=== PATIENT | male | born 1970 | race Caucasian/White ===

== ENCOUNTER 2020-04-23 16:06 | Outpatient (CLI) | payer OTHER, SELFPAY ==
--- NOTE | 2020-04-23 16:15 | CT_ITS ---
WS: [id number] CTA OF THE CHEST WITH PULMONARY EMBOLISM PROTOCOL TECHNIQUE: High-resolution contrast enhanced CTA of the chest with coronal and sagittal reformatted i mages with pulmonary embolism protocol. MIP images are also reviewed. CLINICAL INFORMATION: DYSPNEA, CHEST PAIN GOING THROUGH TO BACK COMPARISON: 010 . DLP: 781.[address] scans at [facility] use at least one of these dose optimization techniques: automat ed exposure control; mA and/or kV adjustment per patient size (includes targeted exams where dose is matched to clinical indication); or iterative reconstruction. FINDINGS: Proximal main pulmonary arteries are normal. Segmental and subsegmental pulmonary arteries are normal . No evidence for pulmonary embolus. Normal caliber thoracic aorta. No mediastinal or hilar lymphaden opathy. Normal endobronchial tree. Small esophageal hiatal hernia. Mild chronic emphysematous changes. Slight bibasilar atelectasis. No acute pulmonary infiltrates. Diffuse fatty infiltration of the liver. Cholecystectomy clips. Adrenal glands are normal. Partially visualized upper pole left renal cyst measuring [address]/CT angio chest PE protcl [id number] IMPRESSION: 1. No evidence of pulmonary embolus. 2. No mediastinal or hilar lymphadenopathy. 3. Normal caliber thoracic aorta. No evidence of dissection. 4. Diffuse fatty infiltration of the liver with cholecystectomy. 5. Small esophageal hiatal hernia. 6. Mild chronic emphysematous changes. No acute pulmonary infiltrates. Slight atelectasis in the lung bases.
[2020-04-23] MEDS: iohexol 350 mg/mL 100 mL Btl IV (16:29)
== END 2020-04-23 16:07 | disposition home or self-care (01) ==
LOC: RADWPI 16:10
PROVIDERS: Family Provider Family Medicine; PCP Family Medicine; Visit Provider Family Medicine
DX: R06.00 Dyspnea, unspecified (principal); R07.9 Chest pain, unspecified; K76.0 Fatty (change of) liver, not elsewhere classified; K44.9 Diaphragmatic hernia without obstruction or gangrene
CPT/HCPCS: 71275; Q9967

== ENCOUNTER → 2020-07-22 09:54 | Outpatient (BNVA) | payer OTHER, SELFPAY | PROVIDERS: Family Provider Family Medicine; PCP Family Medicine; Visit Provider Nurse Practitioner Family | DX: Z20.828 Contact with and (suspected) exposure to other viral communicable diseases (principal); J06.9 Acute upper respiratory infection, unspecified | CPT/HCPCS: 87635 ==

== ENCOUNTER → 2022-03-23 12:50 | Outpatient (BNVA) | payer BC, SELFPAY | PROVIDERS: PCP Family Medicine; Visit Provider Family Medicine | DX: Z12.5 Encounter for screening for malignant neoplasm of prostate (principal); Z00.00 Encounter for general adult medical examination without abnormal findings; R73.03 Prediabetes; Z51.81 Encounter for therapeutic drug level monitoring | CPT/HCPCS: 80053; 83036; 84153; 85025 ==

== ENCOUNTER → 2022-05-04 14:00 | Outpatient (BNVA) | payer BC, SELFPAY | PROVIDERS: PCP Family Medicine; Visit Provider Family Medicine | DX: R30.0 Dysuria (principal) | CPT/HCPCS: 81000; 87086 ==

== ENCOUNTER 2022-05-07 09:39 | Outpatient (CLI) | payer BC, SELFPAY ==
--- NOTE | 2022-05-07 | US_ITS ---
WS: [id number] RENAL ULTRASOUND HISTORY: TENDERNESS COMPARISON: None available. TECHNIQUE: 2-D and color Doppler imaging of the kidney submitted. Right kidney: 12.0 cm x 5.3 cm x 5.0 cm. Normal echogenicity with no hydronephrosis or mass. Left kidney: 11.8 cm x 5.7 cm x 4.5 cm. Normal echogenicity with no hydronephrosis or mass. Aorta: Normal. Urinary Bladder: Minimally distended. No abnormality. US/US renal BI* [id number] IMPRESSION: Normal renal ultrasound.
== END 2022-05-07 09:40 | disposition home or self-care (01) ==
LOC: RAD 09:40
PROVIDERS: PCP Family Medicine; Visit Provider Family Medicine
DX: R10.819 Abdominal tenderness, unspecified site (principal)
CPT/HCPCS: 76770

== ENCOUNTER 2022-05-30 05:48 | Emergency (ER) | payer BC, SELFPAY ==
[2022-05-30 05:55] VITALS: BP 144/87; PULSE 71; RESP 18; TEMP 36.6; O2SAT 98; BMI 38.0
--- NOTE | 2022-05-30 06:07 | CTR_ITS ---
PROCEDURE INFORMATION: Exam: CT Abdomen And Pelvis Without Contrast Exam date and time: 05/30/2022 7:25 AM Age: 51 years old Clinical indication: Abdominal pain; Flank; Right; Prior surgery; Surgery type: Gb, appy; Additional info: Right flank pain TECHNIQUE: Imaging protocol: Computed tomography of the abdomen and pelvis without contrast. Total images: 347 Radiation optimization: All CT scans at this facility use at least one of these dose optimization techniques: automated exposure control; mA and/or kV adjustment per patient size (includes targeted exams where dose is matched to clinical indication); or iterative reconstruction. COMPARISON: CT abdomen wo con [id number] 09/06/2017 1:53 PM RADIATION DOSE METRICS: Total DLP (mGy-cm): 1041.83 FINDINGS: Liver: Hepatic steatosis is evident with areas of focal fatty sparing. Gallbladder and bile ducts: Prior cholecystectomy noted. Pancreas: Normal. No ductal dilation. Spleen: Normal. No splenomegaly. Adrenal glands: Normal. No mass. Kidneys and ureters: Nonobstructive right sided kidney stone measures 2 mm. 4 mm right-sided ureterovesicular junction stone. Mild hydroureteronephrosis. Stomach and bowel: Unremarkable. No obstruction. No mucosal thickening. Appendix: Prior appendectomy noted. Intraperitoneal space: Unremarkable. No free air. No significant fluid collection. Vasculature: Mild atherosclerotic disease is evident. Incidental venous phlebolith noted. Lymph nodes: Unremarkable. No enlarged lymph nodes. Urinary bladder: Unremarkable as visualized. Reproductive: The prostate gland contains benign-appearing calcifications that are likely parenchymal. Bones/joints: L4-S1 Facet joint degenerative changes are present. Soft tissues: Unremarkable. CT/CT kidney stone [id number] IMPRESSION: 4 mm right-sided ureterovesicular junction stone. Mild hydroureteronephrosis.
--- NOTE | 2022-05-30 06:08 | ED_ITS ---
HPI - Male Genitourinary General: Chief complaint: Urogenital-Male Stated complaint: right abdomen pain Time Seen by Provider: 05/30/22 06:04 History of Present Illness: 51-year-old male presents with right flank pain. Patient reports he had an episode couple weeks ago which lasted 3 to 4 days. He was seen had an ultrasound sounds like of his gallbladder that was negative. Reports that the pain woke him up around 4 AM this morning in the right flank radiates little bit down to the lower abdomen. That he is nauseated but has not vomited. Denies any diarrhea. No fevers or chills. No cough. Associated symptoms: Reports nausea; Deny dysuria or vomiting Review of Systems Const: Denies: fever(s) or chills Card: Denies: chest pain or palpitations Resp: Denies: dyspnea or productive cough GI: Reports: abdominal pain and nausea; Denies: vomiting or diarrhea : Reports: flank pain; Denies: dysuria or urinary frequency Musc: Reports: back pain; Denies: neck pain or joint pain Skin/Breast: Denies: rash or pruritus Neuro: Denies: headache(s) or dizziness Physical Exam Const: COMMON NORMALS: no acute distress, average body habitus, patient oriented x3, no limitations and alert HENMT: COMMON NORMALS: hearing grossly normal bilaterally and moist oral mucous membranes Resp: COMMON NORMALS: normal respiratory effort, No retractions and No use of accessory muscles Cardio: COMMON NORMALS: regular rate and regular rhythm RATE: regular rate RHYTHM: regular rhythm GI: COMMON NORMALS: Soft to palpation PALPATION: Yes Soft to palpation and Yes Tenderness to palpation present (GI) Details: RLQ and RUQ : BLADDER/KIDNEY EXAM: Yes CVA tenderness on the right Back/Pelvis: GENERAL BACK: Yes CVA tenderness Extremity: COMMON NORMALS: normal to inspection, full ROM and capillary refill normal Neuro: COMMON NORMALS: patient oriented x3, moves all extremities, no focal motor deficits and no sensory deficits noted SENSORIUM/ORIENTATION: Yes alert Psych: COMMON NORMALS: mental status grossly normal, cooperative and normal affect Skin: COMMON NORMALS: no rashes or lesions noted and turgor normal GENERAL SKIN EXAM: no rashes or lesions noted and turgor normal Course Vital Signs: Vital signs: Vital Signs Temperature 97.9 F 11/06/22 05:55 Pulse Rate 62 05/30/22 08:43 Respiratory Rate 16 05/30/22 08:43 Blood Pressure 133/88 05/30/22 08:43 Pulse Oximetry 99 05/30/22 08:43 Oxygen Delivery Me thod 05/30/22 05:55 MDM - Male Medical Decision Making Patient's CT shows a 4 mm right-sided stone with some mild hydronephrosis. Patient with what appears to be early urinary tract infection. Patient to be treated with pain medic sent, nausea medication and antibiotic. Recommend a strain in his urine. He should follow-up with his primary care provider in 1 week for recheck. Patient stable discharged Lab Data : 05/30/22 06:20 05/30/22 06:20 Radiology Impressions Abdomen/Pelvis CT 05/30/22 06:07 IMPRESSION: 4 mm right-sided ureterovesicular junction stone. Mild hydroureteronephrosis. Laboratory Results WBC 9.0 10^3/uL (4.0-10.0) 05/30/22 06:20 RBC 5.10 10^6/uL (4.1-5.3) 05/30/22 06:20 Hgb 14.9 g/dL (11.7-16.6) 05/30/22 06:20 Hct 46.7 % (42.0-52.0) 05/30/22 06:20 MCV 91.6 fl (80-94) 05/30/22 06:20 MCH 29.2 pg (28.0-34.0) 05/30/22 06:20 MCHC 31.9 g/dL (30.0-36.0) 05/30/22 06:20 RDW 12.9 % (12.1-15.1) 05/30/22 06:20 Plt Count 288 10^3/cmm (130-400) 05/30/22 06:20 MPV 10.4 fL (7.4-10.4) 05/30/22 06:20 Neut % (Auto) 55.5 % 05/30/22 06:20 Lymph % (Auto) 24.6 % 05/30/22 06:20 [place] % (Auto) 10.8 % 05/30/22 06:20 Eos % (Auto) 7.7 % 05/30/22 06:20 Baso % (Auto) 1.0 % 05/30/22 06:20 Neut # (Auto) 4.97 10^3/uL (1.8-7.7) 05/30/22 06:20 Lymph # (Auto) 2.2 10^3/uL (0.8-4.8) 05/30/22 06:20 [place] # (Auto) 1.0 10^3/uL (0.2-0.9) H 05/30/22 06:20 Eos # (Auto) 0.7 10^3/uL (0.0-0.8) 05/30/22 06:20 Baso # (Auto) 0.1 10^3/uL (0.0-0.1) 05/30/22 06:20 Nucleated RBC % (auto) 0 % 05/30/22 06:20 Nucleated RBCs # 0.0 /100WBC 05/30/22 06:20 Sodium 138 mmol/L (136-145) 05/30/22 06:20 Potassium 4.1 mmol/L (3.5-5.1) 05/30/22 06:20 Chloride 101 mmol/L (98-107) 05/30/22 06:20 Carbon Dioxide 28 mmol/L (22-29) 05/30/22 06:20 Anion Gap 13.1 (5-19) 05/30/22 06:20 BUN 16 mg/dL (6-20) 05/30/22 06:20 Creatinine 1.0 mg/dL (0.7-1.2) 05/30/22 06:20 GFR Calculation 78.5 mL/min (90-130) L 05/30/22 06:20 Glucose 108 mg/dL (65-115) 05/30/22 06:20 Calculated Osmolality 288 mOsm/kg (285-295) 05/30/22 06:20 Calcium 8.9 mg/dL (8.5-10.5) 05/30/22 06:20 Total Bilirubin 0.3 mg/dL (0.15-1.2) 05/30/22 06:20 AST 24 U/L (0-40) 05/30/22 06:20 ALT 39 U/L (0-41) 05/30/22 06:20 Alkaline Phosphatase 75 U/L (40-130) 05/30/22 06:20 Total Protein 7.6 g/dL (6.6-8.7) 05/30/22 06:20 Albumin 4.4 g/dL (3.5-5.2) 05/30/22 06:20 Globulin 3.2 g/dL (1.3-4.6) 05/30/22 06:20 Urine Color Dark yellow (Yellow) 05/30/22 06:03 Urine Appearance Clear (CLEAR) 05/30/22 06:03 Urine pH 5 (5-7) 05/30/22 06:03 Ur Specific [place] 1.025 (1.005-1.030) 05/30/22 06:03 Urine Protein 1+ (Negative) H 05/30/22 06:03 Urine Glucose (UA) Norm (Normal) 05/30/22 06:03 Urine Ketones 1+ (Negative) H 05/30/22 06:03 Urine Blood 3+ (Negative) H 05/30/22 06:03 Urine Nitrate Negative (Negative) 05/30/22 06:03 Urine Bilirubin 1+ (Negative) H 05/30/22 06:03 Urine Urobilinogen 1 mg/dL (Negative) H 05/30/22 06:03 Ur Leukocyte Esterase Trace (Negative) H 05/30/22 06:03 Urine RBC 15-25 /hpf (0-2) H 05/30/22 06:03 Urine WBC Rare /hpf (0-5) 05/30/22 06:03 Ur Squamous Epith Cells None /hpf (0-5) 05/30/22 06:03 Amorphous Sediment Not Reportable 05/30/22 06:03 Urine Bacteria 1+ /hpf (NONE) H 05/30/22 06:03 Discharge Plan Discharge Patient Disposition: Home Clinical Impression: Right ureteral calculus Condition: Stable Prescriptions: New hydrocodone-acetaminophen 5-325 mg tablet 1 tab PO Q8H PRN (Reason: pain) Qty: 10 0RF Bactrim DS 800-160 mg tablet 1 tab PO DAILY 5 Days Qty: 10 0RF ondansetron 4 mg tablet,disintegrating 4 mg PO Q6H PRN (Reason: nausea and vomiting) Qty: 20 0RF No Action citalopram 20 mg tablet 20 mg PO DAILY Qty: 90 3RF Discharge Orders: Discharge ED (Routine); Ordered 05/30/22 Ordered By: Mark Wills Referrals: Monico Diehl MD [Primary Care Provider] - Discharge Diet: Usual diet Discharge Activity: Resume usual activity Patient Instructions: Kidney Stones (ED), How to Strain Your Urine (ED), Opioid Safety, Pain Management Activity Restrictions/Additional Instructions: Follow-up with your primary care provider in 4 to 5 days for recheck of your symptoms sooner if they continue to worsen Coding Level of Care Code ED Nanotechnician for Chg Fwd Exam Comprehensive
[2022-05-30] MEDS: sodium chloride 0.9% 1,000 ML 999 ML IV (06:28)
[2022-05-30] MEDS: ketorolac 30 mg/mL INJ IVP (06:28)
[2022-05-30 06:29] LABS: Basophils # 0.1 10^3/uL (0.0-0.1); Eosinophils # 0.7 10^3/uL (0.0-0.8); Eosinophils % 7.7 %; Hematocrit 46.7 % (42.0-52.0); Hemoglobin 14.9 g/dL (11.7-16.6); Lymphocytes # 2.2 10^3/uL (0.8-4.8); Lymphocytes % 24.6 %; Mean Corpuscular HGB Conc 31.9 g/dL (30.0-36.0); Mean Corpuscular Hemoglobin 29.2 pg (28.0-34.0); Mean Corpuscular Volume 91.6 fl (80-94); Mean Platelet Volume 10.4 fL (7.4-10.4); Monocytes % 10.8 %; Neutrophils # 4.97 10^3/uL (1.8-7.7); Neutrophils % 55.5 %; Nucleated Red Blood Cells % 0 %; Platelet Count 288 10^3/cmm (130-400); Red Cell Distribution Width 12.9 % (12.1-15.1)
[2022-05-30 06:50] LABS: Alanine Aminotransferase 39 U/L (0-41); Albumin Level 4.4 g/dL (3.5-5.2); Alkaline Phosphatase 75 U/L (40-130); Anion Gap 13.1 (5-19); Aspartate Amino Transferase 24 U/L (0-40); Blood Urea Nitrogen 16 mg/dL (6-20); Calcium 8.9 mg/dL (8.5-10.5); Carbon Dioxide 28 mmol/L (22-29); Chloride 101 mmol/L (98-107); Globulin 3.2 g/dL (1.3-4.6); Glomerular Filtration Rate 78.5 mL/min (90-130); Glucose 108 mg/dL (65-115); Osmolality Calculated 288 mOsm/kg (285-295); Potassium 4.1 mmol/L (3.5-5.1); Sodium 138 mmol/L (136-145); Total Bilirubin 0.3 mg/dL (0.15-1.2); Total Protein 7.6 g/dL (6.6-8.7)
[2022-05-30] MEDS: orphenadrine 30 mg/mL Inj 2 mL 60 MG IVP (07:03)
[2022-05-30 07:41] LABS: Protein Urine 1+ (Negative); Specific Gravity, Urine 1.025 (1.005-1.030); Urine Appearance Clear (CLEAR); Urine Color Dark Yellow (Yellow); pH Urine 5 (5-7)
[2022-05-30 07:42] LABS: Bilirubin Urine 1+ (Negative); Blood Urine 3+ (Negative); Glucose Urine UA Norm (Normal); Ketones Urine 1+ (Negative); Nitrate Urine Negative (Negative); Urobilinogen Urine 1 mg/dL (Negative)
[2022-05-30 07:43] LABS: Add Urine Culture? Yes; Add Urine Microscopic? YES; Bacteria Urine 1+ /hpf; Leukocyte Esterase Urine Trace (Negative); RBC Urine 15-25 /hpf (0-2); WBC Urine RARE /hpf (0-5)
[2022-05-30 08:43] VITALS: BP 133/88; PULSE 62; RESP 16; O2SAT 99
== END 2022-05-30 08:44 | disposition home or self-care (01) ==
PROVIDERS: Emergency Provider Student in an Organized Health Care Education/Training Program; PCP Family Medicine
DX: N13.2 Hydronephrosis with renal and ureteral calculous obstruction (principal)
CPT/HCPCS: 74176; 80053; 81001; 85025; 87086; 96361; 96374; 96375; 99285; J1885; J2360; J7030

== ENCOUNTER 2023-08-26 15:45 | Emergency (ER) | payer BC, SELFPAY ==
[2023-08-26 15:52] VITALS: BP 124/81; PULSE 81; RESP 16; TEMP 36.7; O2SAT 96
--- NOTE | 2023-08-26 16:18 | CTR_ITS ---
PROCEDURE INFORMATION: Exam: CT Abdomen And Pelvis With Contrast Exam date and time: 08/26/2023 4:52 PM Age: 53 years old Clinical indication: Pain; Generalized; Additional info: Abdominal pain TECHNIQUE: Imaging protocol: Computed tomography of the abdomen and pelvis with contrast. Contrast material: OMNI 350; Contrast volume: 100 ml; Contrast route: INTRAVENOUS (IV); COMPARISON: CT kidney stone [id number] 05/30/2022 7:25 AM RADIATION DOSE METRICS: Total DLP (mGy-cm): 1009.1 FINDINGS: Lungs: Lung bases are clear. No pleural effusion. Liver: There is a stable 2 cm hemangioma in the left hepatic lobe. Gallbladder and bile ducts: The gallbladder has been resected. Pancreas: Normal. No ductal dilation. Spleen: Normal. No splenomegaly. Adrenal glands: Normal. No mass. Kidneys and ureters: Normal. No hydronephrosis. Stomach and bowel: There is focal inflammation involving the mid sigmoid colon and an inflamed diverticulum is noted here. I see no abscess. Appendix: No evidence of appendicitis. Intraperitoneal space: Unremarkable. No free air. No significant fluid collection. Vasculature: Unremarkable. No abdominal aortic aneurysm. Lymph nodes: Unremarkable. No enlarged lymph nodes. Urinary bladder: Unremarkable as visualized. Reproductive: Unremarkable as visualized. Bones/joints: Unremarkable. No acute fracture. Soft tissues: There is a small umbilical hernia containing mesenteric fat. CT/CT abdomen pelvis w con* [id number] IMPRESSION: 1. Acute diverticulitis of the sigmoid colon without abscess 2. Small umbilical hernia 3. Hepatic hemangioma
--- NOTE | 2023-08-26 16:19 | ED_ITS ---
HPI - Abdominal Pain 2 General: Chief Complaint: Abdominal Pain Stated Complaint: Lower abd pain Time Seen by Provider: 08/26/23 16:18 History of Present Illness: 53-year-old male presents emergency depa rtment complaints of intermittent abdominal pain for the previous 4 days. He states the pain is now worse and describes it as a 5 out of 10 and it is more so on the left than the right. He states he has not had any nausea vomiting fevers chills or night sweats. He states he does have a history of diverticulosis. He denies hematic emesis hematochezia. Review of Systems 2 General: Reports: 10 or more systems reviewed and unremarkable except in HPI and below GI: Reports: abdominal pain PFSH ED 2 PFSH: Medical History (Updated 08/26/23 @ 17:23 by Gil Saleem MD) Allergic rhinitis due to allergen Surgical History (Updated 07/22/23 @ 09:42 by Ron Vital MD) History of cholecystectomy History of appendectomy Physical Exam 2 Narrative: EXAM NARRATIVE: Constitutional: the patient appears well nourished and of normal development. Vital signs as documented. No acute distress at present. Alert and oriented-to person, place, time and situation. Head, eyes, ears, nose, mouth, throat: Normocephalic, atraumatic. Pupils-equal, round, reactive to light. No scleral icterus. Normal-appearing external ears. Normal appearing nasal turbinates, no drainage. No obvious oral lesions, posterior oropharynx without erythema or exudates. Neck: Supple, trachea is midline, no lymphadenopathy, no jugular venous distension, thyromegaly, or carotid bruits. Carotid upstrokes are brisk bilaterally. Lungs: clear to auscultation to all lung kahn. Symmetrical rise and fall of chest, no obvious signs of increased work of breathing at present. Cardiac: Regular rate and rhythm, positive S1, S2. No murmurs, rubs or gallops that I can appreciate Abdomen: Soft, tender to palpation to the left and right lower quadrant, normal active bowel sounds to all quadrants. No palpable masses, no organomegaly and abdominal bruits. Extremities: 2+ pulses in the upper extremities that are equal bilaterally, 2+ pulses in the lower extremities that are equal bilaterally. Non-edematous. Moves all extremities well, sensation to all extremities are noted. Skin: Warm, dry, intact. Course 2 Vital Signs: Vital signs: Vital Signs Temperature 98.1 F 08/26/23 15:52 Pulse Rate 86 08/26/23 18:12 Respiratory Rate 18 08/26/23 17:43 Blood Pressure 145/81 08/26/23 18:12 Pulse Oximetry 95 08/26/23 18:12 Oxygen Delivery Me thod Room Air 08/26/23 17:43 MDM - Abdominal Pain Medical Decision Making Physical exam completed and documented, I will obtain laboratory evaluation to include a CBC, CMP, lipase, urinalysis, and a CT scan of the patient's abdomen pelvis to evaluate for possible differential diagnosis of bowel obstruction, incarcerated hernia, abdominal wall strain, abdominal wall hematoma, constipation. I will provide the patient IV access and IV fluid as well as a CT scan abdomen pelvis with contrast for evaluation for possible colitis, acute appendicitis, diverticulitis. Medical Records I reviewed the patient's medical records. Lab Data I reviewed the patient's lab results. 08/26/23 16:24 08/26/23 16:24 Labs/Radiology: Radiology Impressions Abdomen/Pelvis CT 08/26/23 16:18 IMPRESSION: 1. Acute diverticulitis of the sigmoid colon without abscess 2. Small umbilical hernia 3. Hepatic hemangioma Laboratory Results WBC 9.65 10^3/uL (3.29-11.43) 08/26/23 16:24 RBC 4.85 10^6/uL (3.85-5.65) 08/26/23 16:24 Hgb 14.40 g/dL (11.27-16.99) 08/26/23 16:24 Hct 43.3 % (37-53) 08/26/23 16:24 MCV 89.3 fl (82-101) 08/26/23 16:24 MCH 29.7 pg (27-33) 08/26/23 16:24 MCHC 33.3 g/dL (30-55) 08/26/23 16:24 RDW 12.8 % (12.1-15.1) 08/26/23 16:24 Plt Count 284 10^3/cmm (157-399) 08/26/23 16:24 MPV 10.4 fL (7.4-10.4) 08/26/23 16:24 Neut % (Auto) 60.6 % 08/26/23 16:24 Lymph % (Auto) 24.6 % 08/26/23 16:24 [place] % (Auto) 11.2 % 08/26/23 16:24 Eos % (Auto) 2.4 % 08/26/23 16:24 Baso % (Auto) 0.7 % 08/26/23 16:24 Neut # (Auto) 5.85 10^3/uL (1.8-7.7) 08/26/23 16:24 Lymph # (Auto) 2.4 10^3/uL (0.8-4.8) 08/26/23 16:24 [place] # (Auto) 1.1 10^3/uL (0.2-0.9) H 08/26/23 16:24 Eos # (Auto) 0.2 10^3/uL (0.0-0.8) 08/26/23 16:24 Baso # (Auto) 0.1 10^3/uL (0.0-0.1) 08/26/23 16:24 Nucleated RBC % (auto) 0 % 08/26/23 16:24 Nucleated RBCs # 0.0 /100WBC 08/26/23 16:24 Sodium Cancelled 08/26/23 16:24 Potassium Cancelled 08/26/23 16:24 Chloride Cancelled 08/26/23 16:24 Carbon Dioxide Cancelled 08/26/23 16:24 Anion Gap Cancelled 08/26/23 16:24 BUN Cancelled 08/26/23 16:24 Creatinine Cancelled 08/26/23 16:24 GFR Calculation Cancelled 08/26/23 16:24 Glucose Cancelled 08/26/23 16:24 Calculated Osmolality Cancelled 08/26/23 16:24 Lactic Acid 1.2 mmol/L (0.5-2.2) 08/26/23 16:24 Calcium Cancelled 08/26/23 16:24 Total Bilirubin Cancelled 08/26/23 16:24 AST Cancelled 08/26/23 16:24 ALT Cancelled 08/26/23 16:24 Alkaline Phosphatase Cancelled 08/26/23 16:24 Total Protein Cancelled 08/26/23 16:24 Albumin Cancelled 08/26/23 16:24 Globulin Cancelled 08/26/23 16:24 Lipase Cancelled 08/26/23 16:24 Prolactin 12.42 ng/mL (4.0-15.2) 08/26/23 16:24 Urine Color Yellow (Yellow) 08/26/23 17:14 Urine Appearance Clear (CLEAR) 08/26/23 17:14 Urine pH 7 (5-7) 08/26/23 17:14 Ur Specific [place] 1.000 (1.005-1.030) L 08/26/23 17:14 Urine Protein Neg (Negative) 08/26/23 17:14 Urine Glucose (UA) Norm (Normal) 08/26/23 17:14 Urine Ketones Negative (Negative) 08/26/23 17:14 Urine Blood Neg (Negative) 08/26/23 17:14 Urine Nitrate Negative (Negative) 08/26/23 17:14 Urine Bilirubin Neg (Negative) 08/26/23 17:14 Urine Urobilinogen Norm mg/dL (Negative) 08/26/23 17:14 Ur Leukocyte Esterase Negative (Negative) 08/26/23 17:14 All radiology interpretation(s) finalized by discharge Discharge Plan Discharge Patient Disposition: Home Clinical Impression: Diverticulitis Abdominal pain Qualifiers: Abdominal location: lower abdomen, unspecified Qualified Code(s): R10.30 - Lower abdominal pain, unspecified Condition: Stable Prescriptions: New metronidazole 500 mg tablet 500 mg PO BID 7 Days Qty: 14 0RF levofloxacin 750 mg tablet 750 mg PO DAILY 10 Days Qty: 14 0RF hydrocodone-acetaminophen 5-325 mg tablet 1 tab PO Q8H PRN (Reason: pain) Qty: 14 0RF ondansetron HCl 4 mg tablet 4 mg PO Q12H 5 Days Qty: 10 0RF Senna-S 8.6-50 mg tablet 2 tab-cap PO BID Qty: 60 0RF No Action alprazolam 0.5 mg tablet See Rx Instructions .ROUTE .COMPLEX Rx Instructions: TAKE 1 TABLET AT THE ONSET OF SEVERE PANIC MAX 1 PER DAY AND USE INFREQUENTLY POSSIBLE amoxicillin-pot clavulanate 875-125 mg tablet 1 tab PO BID Rx Instructions: for 14 days (rx filled 08/25/23) Zyrtec 10 mg tablet 10 mg PO QAM citalopram 20 mg tablet 20 mg PO QAM Discharge Orders: Discharge ED (Routine); Ordered 08/26/23 Ordered By: Gil Saleem Referrals: Monico Diehl MD [Primary Care Provider] - Discharge Diet: Usual diet Discharge Activity: Resume usual activity Patient Instructions: Abdominal Pain (ED), Opioid Safety, Pain Management Activity Restrictions/Additional Instructions: Activity Restrictions/Additional Instructions: Thank you for choosing [facility] for your healthcare needs today. Please realize that you were seen in the Emergency Department and that we are providing you with an emergency medical screening exam and this may not be a complete and all inclusive of all the testing and or medical work-up that you may need to determine your ailment or severity of your illness. It is very important that you follow-up as instructed with your Primary care provider or Specialist for additional evaluation and to discuss your medical treatment plan. You may return to the Emergency Department should you have concerns or if your condition changes or worsens in any way. Stand Alone Forms: Work/School Release Coding Level of Care Code ED Salesperson Corsets for Salena Pal
[2023-08-26 16:30] VITALS: BP 146/81; PULSE 74; RESP 17; O2SAT 97
[2023-08-26 16:36] LABS: Basophils # 0.1 10^3/uL (0.0-0.1); Basophils % 0.7 %; Eosinophils # 0.2 10^3/uL (0.0-0.8); Eosinophils % 2.4 %; Hematocrit 43.3 % (37-53); Lymphocytes # 2.4 10^3/uL (0.8-4.8); Lymphocytes % 24.6 %; Mean Corpuscular HGB Conc 33.3 g/dL (30-55); Mean Corpuscular Hemoglobin 29.7 pg (27-33); Mean Corpuscular Volume 89.3 fl (82-101); Mean Platelet Volume 10.4 fL (7.4-10.4); Monocytes # 1.1 10^3/uL (0.2-0.9); Monocytes % 11.2 %; Neutrophils # 5.85 10^3/uL (1.8-7.7); Neutrophils % 60.6 %; Nucleated Red Blood Cells % 0 %; Platelet Count 284 10^3/cmm (157-399); Red Blood Count 4.85 10^6/uL (3.85-5.65); Red Cell Distribution Width 12.8 % (12.1-15.1); White Blood Count 9.65 10^3/uL (3.29-11.43)
[2023-08-26 16:49] LABS: Lactic Sepsis W/Reflex 1.2 mmol/L (0.5-2.2)
[2023-08-26] MEDS: iohexol 350 mg/mL 500 mL Btl (per mL) IV (16:53)
[2023-08-26 16:59] LABS: Prolactin 12.42 ng/mL (4.0-15.2)
[2023-08-26 17:10] VITALS: BP 151/89; PULSE 72; O2SAT 99
[2023-08-26 17:28] LABS: Add Urine Microscopic? NO; Charge for UA Resulting for Rev
[2023-08-26] MEDS: levoFLOXacin 750 mg Tablet PO (17:37)
[2023-08-26 17:38] VITALS: RESP 18; O2SAT 97
[2023-08-26] MEDS: ondansetron 2 mg/ML SDV 2 mL 4 MG IVP (17:38)
[2023-08-26] MEDS: morphine 4 mg/mL SDV 1 mL IVP (17:38)
[2023-08-26 17:39] LABS: Bilirubin Urine Neg (Negative); Blood Urine Neg (Negative); Glucose Urine UA Norm (Normal); Ketones Urine Negative (Negative); Leukocyte Esterase Urine Negative (Negative); Nitrate Urine Negative (Negative); Protein Urine Neg (Negative); Urine Appearance Clear (CLEAR); Urine Color Yellow (Yellow); Urobilinogen Urine Norm (Negative); pH Urine 7 (5-7)
[2023-08-26] MEDS: metroNIDAZOLE IV 500 MG/100 ML PREMIX 100 MG IV (17:41)
[2023-08-26 17:43] VITALS: BP 126/76; PULSE 77; RESP 18; O2SAT 98
[2023-08-26 18:12] VITALS: BP 145/81; PULSE 86; O2SAT 95
== END 2023-08-26 18:13 | disposition home or self-care (01) ==
PROVIDERS: Physician Assistant; Emergency Provider Internal Medicine; PCP Family Medicine
DX: K57.92 Diverticulitis of intestine, part unspecified, without perforation or abscess without bleeding (principal); R10.30 Lower abdominal pain, unspecified
CPT/HCPCS: 74177; 81003; 83605; 84146; 85025; 96365; 96375; 99285; J2270; J2405; J3490; Q9967

== ENCOUNTER 2023-08-29 09:25 | Outpatient (CLI) | payer BC, SELFPAY ==
--- NOTE | 2023-08-29 09:29 | CT_ITS ---
WS: [id number] CT abdomen pelvis w con* [id number] REASON FOR EXAM: ACUTE DIVERTICULITIS IV CONTRAST ADMINISTERED: Omnipaque 350 100 mL. TOTAL EXAM DLP: 841.[address] scans at [facility] use at least one of these dose optimization techniques: automat ed exposure control; mA and/or kV adjustment per patient size (includes targeted exams where dose is matched to clinical indication); or iterative reconstruction. FINDINGS: Compared to the CT scan of the abdomen and pelvis of 08/26/2023, the previously demonstrated diverticul itis in the sigmoid colon is again identified. These segment of the diseased colon demonstrates incre ased findings of inflammation with increased mural thickening and enhancement. There is increased haz iness in the fat. There is no abscess or free air to indicate perforation. No free fluid is identified. The remainder of the abdomen and pelvis is unchanged with no acute or subacute abnormalities. IMPRESSION: Increased inflammatory change in the sigmoid segment of diverticulitis. No findings of perforation.
[2023-08-29] MEDS: iohexol 350 mg/mL 500 mL Btl (per mL) IV (09:42)
== END 2023-08-29 09:26 | disposition home or self-care (01) ==
LOC: RAD 09:25
PROVIDERS: PCP Family Medicine; Visit Provider Family Medicine
DX: K57.32 Diverticulitis of large intestine without perforation or abscess without bleeding (principal)
CPT/HCPCS: 74177; Q9967

== ENCOUNTER 2025-05-28 11:48 | Inpatient (IN) | payer BC, SELFPAY ==
[2025-05-28] VITALS (7 sets, daily range): BP systolic 124–156; BP diastolic 72–95; PULSE 102–117; RESP 16–17; TEMP 36.9–37.7; O2SAT 91–97; BMI 36.2
--- OUTSIDE RECORDS SUMMARY | 2025-05-28 11:54 | XMS_ITS | Encounter Summary ---
Author Organization [facility] Address [address] [place] [address] Care Team Providers Care Roll Line Operator Name Role Phone Ham Corbin MD Primary Care Provider [phone] Encounter Details Date Type Department Care Team (Latest Contact Info) Description 06/07/2001 Outpatient Historical [facility] Occupational Medicine-[facility] [address] [place] [phone] Noe Vásquez MD NO ADDRESS ON FILE CARPAL TUNNEL SYNDROME (Primary Dx) Social History Tobacco Use Types Packs/Day Years Used Date Smoking Tobacco: Never Assessed Sex and Gender Information Value Date Recorded Sex Assigned at Not on file 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
--- OUTSIDE RECORDS SUMMARY | 2025-05-28 11:54 | XMS_ITS | Encounter Summary ---
Author Organization [facility] Address [address] [facility] Attn: [place] [address] Care Team Providers Care Chemical Radiation Technician Name Role Phone Ham Corbin MD Primary Care Provider [phone] Encounter Details Date Type Department Care Team (Late st Contact Info) Description 11/24/2000 Outpatient Historical Noe Rey Jr., MD [address] [place] [phone] Social History Tobacco Use Types Packs/Day Years Used Date Smoking Tobacco: Never Assessed Sex and Gender Information Value Date Recorded Sex Assigned at Not on file 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
--- OUTSIDE RECORDS SUMMARY | 2025-05-28 11:54 | XMS_ITS | Encounter Summary ---
Author Organization [facility] Address [address] [place] [address] Care Team Providers Care Brushing Machine Operator Name Role Phone Ham Corbin MD Primary Care Provider [phone] Encounter Details Date Type Department Care Team (Late st Contact Info) Description 05/10/2001 Outpatient Historical HIS [facility] Inder Blank MD [address] [facility] [address] [place] [phone] Carpal tunnel syndrome (Primary Dx) Social History Tobacco Use Types Packs/Day Years Used Date Smoking Tobacco: Never Assessed Sex and Gender Information Value Date Recorded Sex Assigned at Not on file Legal Sex Male 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
--- OUTSIDE RECORDS SUMMARY | 2025-05-28 11:54 | XMS_ITS | Encounter Summary ---
Author Organization [facility] Address [address] [place] [address] Care Team Providers Care Power Machine Operator Name Role Phone Ham Corbin MD Primary Care Provider [phone] Encounter Details Date Type Department Care Team (Late st Contact Info) Description 06/07/2001 Outpatient Historical HIS [facility] Inder Blank MD [address] [facility] [address] [place] [phone] POSTSURG AFTERCARE OTHER SPECIFIED (Primary Dx) Social History Tobacco Use Types Packs/Day Years Used Date Smoking Tobacco: Never Assessed Sex and Gender Information Value Date Recorded Sex Assigned at Not on file Legal Sex Male 5:33 AM 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
--- OUTSIDE RECORDS SUMMARY | 2025-05-28 11:54 | XMS_ITS | Clinical Summary ---
Author Organization [facility] Address [address] [facility] Attn: Epic Prelude ADT [place] [address] Care Team Providers Care Logging Tractor Operator Swamp Name Role Phone Ham Corbin MD Primary Care Provider [phone] Allergies No known active allergies Medications meloxicam (MOBIC) 15 mg tablet Take 1 Tablet (15 mg) by mouth 1 time daily as needed for Pain. 30 Tablet 6 06/11/2019 Active citalopram (CeleXA) 20 mg tablet 04/22/2019 Active Active Problems Problem Noted Date Diagnosed Date Appendicitis, unqualified 01/10/2009 Social History Tobacco Use Types Packs/Day Years Used Date Smoking Tobacco: Former Alcohol Use Standard Drinks/Week Comments No 0 (1 standard drink = 0.6 oz pur e alcohol) Sex and Gender Information Value Date Recorded Sex Assigned at Not on file Legal Sex Male 5:21 PM RHEUMATOLOGY SPECIALIST Gender Identity Not on file Sexual Orientation Not on file Last Filed Vital Signs Vital Sign Reading Time Taken Comments Blood Pressure 130/79 06/11/2019 8:44 AM RHEUMATOLOGY SPECIALIST Pulse - - Temperature - - Respiratory Rate - - Oxygen Saturation - - Inhaled Oxygen Concentration - - Weight 102.1 kg (225 lb) 06/11/2019 8:44 AM RHEUMATOLOGY SPECIALIST Height 172.7 cm (5' 8 ) 06/11/2019 8:44 AM RHEUMATOLOGY SPECIALIST Body Mass Index 34.21 06/11/2019 8:44 AM RHEUMATOLOGY SPECIALIST Plan of Treatment Health Maintenance Due Date Last Done Comments DTAP/TDAP/TD VACCINES (1 - Tdap) 1988 HEPATITIS B VACCINES (1 of 3 - 19+ 3-dose series) 02/1989 COLORECTAL SCREENING 2014 Colorectal Cancer Screening 2014 FIT-DNA Q 3 years 2014 FIT/FOBT Q 1 year 2014 Flex Sig/CT Colonography Q 5 years 2014 ZOSTER VACCINE (1 of 2) 2019 INFLUENZA VACCINE (#1) 2025 Care Teams Logging Tractor Operator Swamp Relationship Specialty Start Date End Date Ham Corbin MD [address] [place] [phone] PCP - General Family Practice 08/15/19
--- OUTSIDE RECORDS SUMMARY | 2025-05-28 11:54 | XMS_ITS | Encounter Summary ---
Author Organization [facility] Address [address] [place] [address] Care Team Providers Care Quality Review Trainer Name Role Phone Ham Corbin MD Primary Care Provider [phone] Encounter Details Date Type Department Care Team (Late st Contact Info) Description 05/24/2001 Outpatient Historical HIS [facility] Inder Blank MD [address] [facility] [address] [place] [phone] POSTSURG AFTERCARE OTHER SPECIFIED (Primary Dx) Social History Tobacco Use Types Packs/Day Years Used Date Smoking Tobacco: Never Assessed Sex and Gender Information Value Date Recorded Sex Assigned at Not on file Legal 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
--- OUTSIDE RECORDS SUMMARY | 2025-05-28 11:54 | XMS_ITS | Encounter Summary ---
Author Organization [facility] Address [address] [place] [address] Care Team Providers Care Bulk Cooler Installer Name Role Phone Ham Corbin MD Primary Care Provider [phone] Encounter Details Date Type Department Care Team (Latest Contact Info) Description 11/30/2000 Outpatient Historical HIS [facility] Noe Rey Jr., MD [address] [place] [address] Abdominal pain, unspecified site (Primary Dx) Social History Tobacco Use Types Packs/Day Years Used Date Smoking Tobacco: Never Assessed Sex and Gender Information Value Date Recorded Sex Assigned at Not on file 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
--- OUTSIDE RECORDS SUMMARY | 2025-05-28 11:54 | XMS_ITS | Encounter Summary ---
Author Organization [facility] Address [address] [place] [address] Care Team Providers Care Animal Pathologist Name Role Phone Ham Corbin MD Primary Care Provider [phone] Encounter Details Date Type Department Care Team (Latest Contact Info) Description 11/23/2000 Outpatient Historical HIS [facility] Noe Rey Jr., MD [address] [place] [address] Chest pain, unspecified (Primary Dx); Benign karma scalp/skin neck Social History Tobacco Use Types Packs/Day Years Used Date Smoking Tobacco: Never Assessed Sex and Gender Information Value Date Recorded Sex Assigned at Not on file Legal 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
--- OUTSIDE RECORDS SUMMARY | 2025-05-28 11:54 | XMS_ITS | Encounter Summary ---
Author Organization [facility] Address [address] [facility] Attn: [place] [address] Care Team Providers Care Destination Imagination Coordinator Name Role Phone Ham Corbin MD Primary Care Provider Encounter Details Date Type Department Care Team (Late st Contact Info) Description 06/21/2001 Outpatient Historical Noe Vásquez MD NO ADDRESS ON FILE Social History Tobacco Use Types Packs/Day Years Used Date Smoking Tobacco: Never Assessed Sex and Gender Information Value Date Recorded Sex Assigned at Not on file Legal Sex Male 5:33 AM 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
--- OUTSIDE RECORDS SUMMARY | 2025-05-28 11:54 | XMS_ITS | Encounter Summary ---
Author Organization [facility] Address [address] [place] [address] Care Team Providers Care Recreational Vehicle Repairer Name Role Phone Ham Corbin MD Primary Care Provider [phone] Encounter Details Date Type Department Care Team (Latest Contact Info) Description 06/21/2001 Outpatient Historical [facility] [address] [place] [phone] Noe Vásquez MD NO ADDRESS ON FILE CARPAL TUNNEL SYNDROME (Primary Dx) Social History Tobacco Use Types Packs/Day Years Used Date Smoking Tobacco: Never Assessed Sex and Gender Information Value Date Recorded Sex Assigned at Not on file Legal Sex Male 5:33 AM BODY REPAIRER Gender Identity Not on file Sexual Orientation Not on file documented as of this encounter Plan of Treatment Not on file documented as of this encounter Visit Diagnoses Diagnosis Carpal tunnel syndrome- Primary documented in this encounter Care Teams Recreational Vehicle Repairer Relationship Specialty [place] [address] [place] [phone] PCP - General Family Practice 08/15/19 documented as of this encounter
--- OUTSIDE RECORDS SUMMARY | 2025-05-28 11:54 | XMS_ITS | Encounter Summary ---
Author Organization [facility] Address [address] [place] [address] Care Team Providers Care Bleach Tester Name Role Phone Ham Corbni MD Primary Care Provider Encounter Details Date Type Department Care Team (Late st Contact Info) Description 05/19/2001 Outpatient Historical HIS [facility] Inder Blank MD [address] [facility] [address] [place] [phone] Carpal tunnel syndrome (Primary Dx) Social History Tobacco Use Types Packs/Day Years Used Date Smoking Tobacco: Never Assessed Sex and Gender Information Value Date Recorded Sex Assigned at Not on file Legal Sex Male 5:33 AM UNIT MANAGER RN Gender Identity Not on file Sexual Orientation Not on file documented as of this encounter Plan of Treatment Not on file documented as of this encounter Visit Diagnoses Diagnosis Carpal tunnel syndrome- Primary documented in this encounter Care Teams Bleach Tester Relationship Specialty Start Date End Date Ham Corbin MD [address] [place] [phone] PCP - General Family Practice 08/15/19 documented as of this encounter
--- OUTSIDE RECORDS SUMMARY | 2025-05-28 11:54 | XMS_ITS | Continuity of Care Document ---
Author Organization [facility], L.LZacarias, [facility] ([facility]) Address [address] [place] [address] Care Team Providers Care Biztalk Software Developer Name Role Phone MONICO DAVIS Primary Care Provider Assessment Encounter Date Assessment Date Assessment LastModified by Organization Details LastModified Time 05/28/2025 05/28/2025 to ER for emergent evaluation of rlq pain with peritoneal signs, fever, severe pain. ddx is broad but most likely is complicated diverticulitis in new location. Not available 05/28/2025 12:30:51 Plan of Treatment Reminders Order Date Submit Date Provider Last Modified By Organization Details Last Modified Time Details Appointments OFFICE VISIT SUSAN 2024 11:15A M Monico Davis MD Not available Not available Not available Lab None recorded. Referral None recorded. Procedures None recorded. Surgeries None recorded. Imaging None recorded. Medication Orders promethaz ine 25 mg/mL injection solution 2024 025 [email or web address] Not available 05/28/2025 12:43:55 Patient TargetsNo targets recorded. Patient InstructionsNo instructions recorded. Reason for Referral None Reported. Problems Name Problem SNOMED Code Status Onset Date Resolution Date Notes Provider Name and Address Organization Details Recorded Time Generalized anxiety disorder 64586075 [facility] Diverticuliti s 019919156 Active 2023 AJ nova [facility] [place] 4 09:13:30 Steatotic liver disease 495248538 Active 2023 Monico Davis MD [address] [place], [address], [facility], [place] 4 08:55:24 Elevated blood-pressur e reading without diagnosis of hypertension 344930632 Active 2023 AJ nova [facility], [place] 15:24:14 Dysplastic nevus of skin 442568719 Active 2024 Narcisa nova [facility], [place] 09:30:32 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 Procedures Surgical History Date Name Laterality Status Provider Name and Address Organization Details Recorded Time 04/10/20 25 jr shave biopsy completed Monico Davis MD [address] [place], [address], [facility], [place] 04/10/2025 09:19:40 10/04/19 25 arthroscopy of left knee joint completed AJLINSEY BUTLER [facility], [place] 10/09/2024 17:31:53 01/19/20 22 colonoscopy completed AJ BUTLER [facility], [place] 10/09/2024 17:32:32 03/06/20 10 cholecystectomy completed AJLINSEY BUTLER [facility] [place] 10/09/2024 17:33:06 appendectomy completed AJLINSEY BUTLER [facility] [place] 10/09/2024 17:32:02 Carpal tunnel surgery completed AJLINSEY BUTLER [facility] [place] 08/29/2023 08:37:41 nasal septoplasty completed AJ BUTLER [facility], [place] 08/29/2023 08:38:07 catheterization of left heart completed [facility], [place] 08/29/2023 08:39:32 Imaging Results None recorded. Procedure Notes None recorded. Medical Equipment None Reported. Allergies No known drug allergies Medications Name Sig Start Date Stop Date Status Note LastModified by Organization Details LastModified Time doxycycli ne hyclate 100 mg capsule TAKE 1 CAPSULE BY MOUTH TWICE A DAY 01/14 completed Not Available Not Available Not Available cetirizin e 10 mg tablet TAKE 1 TABLET BY MOUTH EVERY MORNING FOR ALLERGIE S active Not Available Not Available No t Available azithromy aurelia 250 mg tablet TAKE 2 TABLETS BY MOUTH TODAY, THEN TAKE 1 TABLET DAILY FOR 4 DAYS DIRECTED 04/10 completed Not Available Not Available Not Available hydrocodo ne 5 mg-acetam inophen 325 mg tablet TAKE 1 TABLET BY MOUTH EVERY 8 HOURS NEEDED FOR PAIN. 09/06 completed Not Available Not Available Not Available ondansetr on HCl 4 mg tablet 09/14 completed Not Available Not Available Not Available prednison e 20 mg tablet TAKE 2 TABLETS BY MOUTH DAILY 01/14 completed Not Available Not Available Not Available metronida zole 500 mg tablet TAKE 1 TABLET BY MOUTH EVERY 8 HOURS FOR 10 DAYS 12/05 completed Not Available Not Available Not Available ciproflox acin 500 mg tablet TAKE 1 TABLET BY MOUTH EVERY 12 HOURS FOR 10 DAYS 12/05 completed Not Available Not Available Not Available peg-elect rolyte solution 420 gram oral solution FOLLOW COLONOSC OPY PREP INSTRUCT IONS. 12/05 completed Not Available Not Available Not Available tramadol 50 mg tablet TAKE 1 TABLET BY MOUTH EVERY 4 HOURS NEEDED FOR PAIN 04/10 completed Not Available Not Available Not Available alprazola m 0.5 mg tablet TAKE 1 TABLET AT THE ONSET OF SEVERE PANIC, MAX 1 PER DAY AND USE INFREQUE NTLY POSSIBLE active Not Available Not Available No t Available citalopra m 20 mg tablet TAKE 1 TABLET BY MOUTH EVERY DAY 2024 active Not Available Not Available Not Avai lable tamsulosi n 0.4 mg capsule 01/14 completed Not Available Not Available Not Available hydrocodo ne 7.5 mg-acetam inophen 325 mg tablet 01/14 completed Not Available Not Available Not Available hyoscyami ne sulfate 0.125 mg tablet TAKE 1 TABLET BY MOUTH FOUR TIMES A DAY NEEDED FOR IRRITABL E BOWEL SYMPTOMS 04/10 completed Not Available Not Available Not Available promethaz ine 25 mg/mL injection solution Take 1 mL by injectio n route for 1 day. 2024 active Not Available Not Available Not Avai lable hydrocort isone 2.5 % topical cream MIX 1:1 WITH KETOCONA ZOLE CREAM & APPLY TO SCALY RASH ON EARS & FACE NEEDED. active Not Available Not Available No t Available bisacodyl 5 mg tablet,de layed release TAKE 4 TABS BY MOUTH ONCE FOR COLONOSC OPY-FOLL OW INSTRUCT IONS IN YOUR COLONOSC OPY PACKET 12/05 completed Not Available Not Available Not Available azelastin e 137 mcg (0.1 %) nasal spray USE 2 SPRAYS INTO EACH NOSTRIL TWICE DAILY 10/31 completed Not Available Not Available Not Available levofloxa aurelia 750 mg tablet 1 daily 09/06 completed Not Available Not Available Not Available losartan 50 mg-hydroc hlorothia zide 12.5 mg tablet TAKE 1 TABLET BY MOUTH EVERY DAY 04/10 completed Not Available Not Available Not Available ketoconaz ole 2 % topical cream MIX 1 TO1 WITH HYDROCOR TISONE APPLY TO SCALY RASH ON FACE AND EARS TWICE DAILY active Not Available Not Available No t Available ondansetr on 4 mg disintegr ating tablet TAKE 1 TABLET BY MOUTH EVERY 6 HOURS NEEDED FOR NAUSEA AND VOMITING 04/10 completed Not Available Not Available Not Available fluticaso ne propionat e 50 mcg/actua tion nasal spray,catalina pension USE 1 SPRAY INTO EACH NOSTRIL DAILY 05/28 completed Not Available Not Available Not Available naproxen 500 mg tablet Take 1 tablet twice a day by oral route for 14 days. 04/10 completed Not Available Not Available Not Available metoclopr amide 10 mg tablet TAKE 1 TABLET BY MOUTH ONCE. FOR COLONOSC OPY 12/05 completed Not Available Not Available Not Available amoxicill in 875 mg-potass ium clavulana te 125 mg tablet TAKE 1 TABLET BY MOUTH EVERY 12 HOURS FOR 10 DAYS 02/13 completed Not Available Not Available Not Available Vitamin B-12 1,000 mcg tablet daily 05/28 completed pt is not taking daily; Recorded 06/04/20 22 7:13AM by Narcisa Farias RN, Office Visit; Refill Quantity : 90; Tablet; Not Available Not Available Not Available oxycodone 5 mg tablet TAKE 1 TABLET BY MOUTH EVERY 4 HOURS NEEDED FOR PAIN 04/10 completed Not Available Not Available Not Available Bactrim DS 800 mg-160 mg tablet 05/28 completed prescrib ed by ER for kidney stone; 0; Recorded 06/04/20 22 7:13AM by Narcisa Farias RN, Office Visit; Not Available Not Available Not Available Vitamin D active Not Available Not Alize ilable Not Available ondansetr on 05/28 completed prescrib ed by ER for kidney stone; 0; Recorded 06/04/20 22 7:13AM by Narcisa Farias RN, Office Visit; Not Available Not Available Not Available Senexon-S 8.6 mg-50 mg tablet TAKE 2 TABLETS BY MOUTH TWICE A DAY 09/14 completed Not Available Not Available Not Available Vitals Date Recorded Body height Body mass index (BMI) Body weight Body temperature Heart rate Oxygen saturation Oxygen saturation in Arterial blood by Pulse oximetry Systolic And Diastolic Provider Name and Address Organization Details Last Updated DateTime 172.72 cm 36.5 kg/m2 997060. 17 g 97.9 [degF] 109 /min 97 % 97 % 126/74 mm[Hg] Narcisa Schaeffer [facility] 12:00:40 Social History Question Answer Notes LastModified by [employer] Details LastModified Time Tobacco Smoking Status Former Smoker AJ nova [facility] 08/29/2023 08:37:09 What Was The Date Of Your Most Recent Tobacco Screening? 04/10/2025 [email or web address] Information not available 04/10/2025 Sex: Unknown Functional Status Question Answer Note LastModified by Organizat ion Details LastModified Time Do you use any illicit or recreational drugs? No [email or web address] Information not available 08/29/2023 Do you or have you ever used any other forms of tobacco or nicotine? No [email or web address] Information not available 08/29/2023 What is your level of alcohol consumption? None [email or web address] Information not available 08/29/2023 Do you or have you ever used any nicotine-free cigarettes, vape, or chewing tobacco? No [email or web address] Information not available 05/01/2025 Mental Status None recorded. Family History Relationship Description Onset Age of this Age Resolved Age Notes LastModified by Organization Details LastModified Time Mother Diabetes mellitus [email or web address] Not available 08/29 08:36:09 Maternal Grandmother Diabetes mellitus [email or web address] Not available 08/29 08:36:13 Medical History No medical history recorded. Immunizations Vaccine Type Date Status Note Provider Nam e and Address Organization Details Recorded Time Influenza, MDCK, quadrivalent, PF 0 completed Not Available [facility] 02/19/2023 02:23:32 Influenza, split virus, trivalent, preservative 2 completed Not Available [facility] 02/19/2023 02:23:32 Td(adult) unspecified formulation 2 completed Not Available [facility] 02/19/2023 02:23:32 Influenza, split virus, trivalent, preservative 5 completed Not Available [facility] 02/19/2023 02:23:32 Past Encounters Encounter ID Performer Location Encounter Start Date Encounter Closed Date Diagnosis/Indication Diagnosis SNOMED-CT Code Diagnosis ICD10 Code Diagnosis IMO Codes Diagnosis Note [id number] Monico Davis MD [facility] ([facility]) [address] [place] [phone] 05/01/2025 08:47:58 05/07/2025 08:28:32 Active or passive immunization 243090948 Z23 Well adult 012233957 Z00 .00 63473563 Generalize d anxiety disorder 00382316 F41.1 [id number] Monico Davis MD [facility] ([facility]) [address] [place] [address] 05/28/2025 11:52:44 05/28/2025 12:31:17 Right lower quadrant pain 824917977 R10.31 990228 Tenderness of right lower quadrant of abdomen 071229620 R10.813 79673183 Nausea 838216728 R11.0 95438 Health Concerns Section Related Observation LastModified by Organization Detai ls LastModified Time None Recorded Concern Status LastModified by Organization Details LastModified Time None Recorded Payers Encounter Date Sequence Insurance Name Policy Number Policy Marrero Covered Member ID Marrero Member ID Guarantor Name 05/28/2025 1 [place] [id number] Adam Faye [id number] Adam Viki Faye Notes Date Note Type Note Provider Name and Address Organization Details Recorded Time 05/28/2025 text/html Abdominal PainRe ported by PatientAbdominal PainFor associated symptoms, patient reportsfever (102),nausea,decreased appetite, andfatiguebut reportsno blood in the urine,no shortness of breath,no vomiting,no diarrhea,no constipation,no blood in stool, andno dysuria. For location, patient reportsrlq. For onset/timing, patient reportsacute (3 days).Hx of diverticulitis he has had an appendectomy and cholecystectomy. his typical diverticulitis hurts on the left and this is on the right.no blood in the stool.he is starving to but he is not eating.he is drinking water.last bm was this am. it was soft and easy to pass. no pain with passing it or maybe just a little.he is having bm twice per day and they are formed and soft. the color is brown/ruth. no mucus.no vomiting but he is nauseated. Monico Davis MD [address] [place] [address], [phone], [facility] 05/28/2025 12:31:15
--- OUTSIDE RECORDS SUMMARY | 2025-05-28 11:55 | XMS_ITS | Encounter Summary ---
Author Organization [facility] Address [address] [place] [address] Care Team Providers Care Pneumatic Tube Repairer Name Role Phone Ham Corbin MD Primary Care Provider [phone] Encounter Details Date Type Department Care Team (Latest Contact Info) Description 07/11/2001 Outpatient Historical [facility] Occupational Medicine-[facility] [address] [place] [phone] Noe Vásquez MD NO ADDRESS ON FILE CARPAL TUNNEL SYNDROME (Primary Dx) Social History Tobacco Use Types Packs/Day Years Used Date Smoking Tobacco: Never Assessed Sex and Gender Information Value Date Recorded Sex Assigned at Not on file 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
--- OUTSIDE RECORDS SUMMARY | 2025-05-28 11:55 | XMS_ITS | Encounter Summary ---
Author Organization [facility] Address [address] [place] [address] Care Team Providers Care Hat Body Inspector Name Role Phone Ham Corbin MD Primary Care Provider [phone] Encounter Details Date Type Department Care Team (Latest Contact Info) Description 07/13/1999 Outpatient Historical [facility] Inocente Lyons NO ADDRESS ON FILE Influenza with other respiratory manifestations (Primary Dx) Social History Tobacco Use Types Packs/Day Years Used Date Smoking Tobacco: Never Assessed Sex and Gender Information Value Date Recorded Sex Assigned at Not on file 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
--- OUTSIDE RECORDS SUMMARY | 2025-05-28 11:55 | XMS_ITS | Encounter Summary ---
Author Organization [facility] Address [address] [place] [address] Care Team Providers Care Avionics Integration Engineer Name Role Phone Ham Corbin MD Primary Care Provider [phone] Encounter Details Date Type Department Care Team (Latest Contact Info) Description 04/13/2002 Outpatient Historical [facility] Occupational Medicine-[facility] Andrea [address] [facility] [address] [place] [phone] SHIRA BASS [address] 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
--- OUTSIDE RECORDS SUMMARY | 2025-05-28 11:55 | XMS_ITS | Encounter Summary ---
Author Organization [facility] Address [address] [place] [address] Care Team Providers Care Bead Flipper Name Role Phone Ham Corbin MD Primary Care Provider [phone] Encounter Details Date Type Department Care Team (Latest Contact Info) Description 09/07/2001 Outpatient Historical [facility] Occupational Medicine-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
--- OUTSIDE RECORDS SUMMARY | 2025-05-28 11:55 | XMS_ITS | Encounter Summary ---
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
--- OUTSIDE RECORDS SUMMARY | 2025-05-28 11:55 | XMS_ITS | Clinical Summary ---
Author Organization [facility] Address [address] [place] [address] Phone Care Team Providers Care Technology Professional Name Role Phone Ham Corbin MD Primary Care Provider [phone] Allergies No known active allergies Medications citalopram (CeleXA) 20 mg tablet 04/22/2019 Active meloxicam (MOBIC) 15 mg tablet Take 1 Tablet (15 mg) by mouth 1 time daily as needed for Pain. 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 Pulse 97 01/10/2009 7:49 PM CDT Temperature 36.3 C (97.3 F) 01/10/2009 10:55 PM CDT Respiratory Rate 18 01/11/2009 12:30 AM CDT Oxygen Saturation 99% 01/11/2009 12:30 AM CDT Inhaled Oxygen Concentration - - Weight 102.1 kg (225 lb) 06/11/2019 8:44 AM PROFESSOR OF RHETORIC Height 172.7 cm (5' 8 ) 06/11/2019 8:44 AM PROFESSOR OF RHETORIC Body Mass Index 34.21 06/11/2019 8:44 AM PROFESSOR OF RHETORIC Plan of Treatment Health Maintenance Due Date Last Done Comments DTAP/TDAP/TD VACCINES (1 - Tdap) 1988 HEPATITIS B VACCINES (1 of 3 - 19+ 3-dose series) 02/1989 COLORECTAL SCREENING 2014 Colorectal Cancer Screening 2014 FIT-DNA Q 3 years 2014 FIT/FOBT Q 1 year 2014 Flex Sig/CT Colonography Q 5 years 2014 ZOSTER VACCINE (1 of 2) 2019 INFLUENZA VACCINE (#1) 2025 Insurance [facility] OPTIONS PPO Advance Directives For more information, please contact: [phone] * Full Code (Latest Code Status on File) Date Activated Date Inactivated Comments 01/10/2009 10:02 PM 01/11/2009 7:09 PM Care Teams Technology Professional Relationship Specialty Start Date End Date Ham Corbin MD [address] [place] [address] PCP - General Family Practice 08/15/19
--- OUTSIDE RECORDS SUMMARY | 2025-05-28 11:55 | XMS_ITS | Data Portability ---
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 it is improving and he would like to continue that trending. he is replacing starches with vegetables. [email or web address] Not available 05/01/2025 09:27:06 05/28/2025 05/28/2025 to ER for emergent evaluation of rlq pain with peritoneal signs, fever, severe pain. ddx is broad but most likely is complicated diverticulitis in new location. Not available 05/28/2025 12:30:51 Plan of Treatment Reminders Order Date Submit Date Provider Last Modified By Organization Details Last Modified Time Details Appointments OFFICE VISIT SUSAN 2024 11:15A M Levi Diehl MD Not available Not available Not available Lab CMP, serum or plasma 2024 025 DAVID Hayes [facility], [address], [place], [address], 04/26/2025 10:07:56 lipid panel, blood 2024 025 DAVID Hayes [facility], [address], [place], [address], 04/26/2025 10:07:58 PSA, serum or plasma [facility]24 [facility], [address], [place], [address], 04/27/2025 07:56:48 Referral None recorde d. Procedures None recorde d. Surgeries None recorde d. Imaging None recorde d. Medication Orders prometh azine 25 mg/mL injecti on solutio n 2024 025 [email or web address] Not available 05/28/2025 12:43:55 citalop natasha 20 mg tablet 2024 025 [id number], [address], [address], 05/01/2025 09:28:32 naproxe n 500 mg tablet 2024 025 [id number], [address], [address], 04/10/2025 08:55:42 Patient TargetsNo targets recorded. Patient InstructionsNo instructions recorded. Reason for Referral None Reported. Results Created Date Observation Date Name Description Value Unit Range Abnormal Flag Note LastModifiedBy Organization Detail LastModifiedTime 08/14/19 25 08/14/2024 rapid strep group A, throa t Strep negati ve Not Available [facility] ([facility]) [address] [place], [address], 08/14/2024 10:30:24 04/10/20 25 04/16/2025 TISSU E PATHO LOGY clinical information None given Not Available [address] [facility] [address] [place], [address], 04/16/2025 16:20:26 04/10/20 25 04/16/2025 TISSU E PATHO LOGY pathologist Hemanth saucedo M.D., [place] [employer], Board Certi fied in [place] [employer], Anato shilo Patho logy and Clini jacinto Patho logy (elec troni c signa ture) Patho logis t Relea se Date/ Time: 04/16 02:41 PM Not Available [facility] [address] [place], [address], 04/16/2025 16:20:26 04/10/2004/16/2025 TISSU E PATHO LOGY A source Skin, right forea rm, shave biops y Not Available [facility] [address], [place], [address], 04/16/2025 16:20:26 04/10/2004/16/2025 TISSU E PATHO LOGY A gross description Speci men is recei jose cruz in 10% neutr al buffe red forma cristiano, label ed with multi ple patie nt ident ifier s and consi sts of one piece from a skin shave biops y measu ring 0.9 x 0.7 x 0.1 cm, irreg ular in shape and ruth-g ray in color , with a pigme nted area measu ring 0.7 x 0.5 cm and ruth-b rown in color . The reji ns are inked green . The speci men is seria lly secti oned and entir sana submi tted in one casse tte(s ). Gross exam( s) perfo rmed at: [facility] [address] [facility] [address], [place] [address] Labor atory Direc tor: JUSTIN Goode MD Not Available [facility] [address] , [place], [address], 04/16/2025 16:20:26 04/10/2004/16/2025 TISSU E PATHO LOGY A diagnosis Boaz und dyspl astic nevus with conge nital featu res, moder ate to sever e dyspl almas. See comme nt. The melan ocyti c proli ferat ion exten ds to the perip heral edge of the tissu e speci men. Not Available [facility] [address] [place], [address], 04/16/2025 16:20:26 04/10/20 25 04/16/2025 TISSU E PATHO LOGY A comment A reexc ision to ensur e compl ete remov al of this melan ocyti c proli ferat ion is recom daphnie d. Mulit plex stain Mart1 /Sox1 0 highl ights the melan ocyte s. There is some PRAME expre ssion by the melan ocyte s withi n the epide rmis. There is p16 expre ssion . All posit jhonny and requi red negat jhonny contr ols stain ed appro priat sana. Not Available [facility] [address] , [place], [address], 04/16/2025 16:20:26 04/26/20 25 04/26/2025 CMP (MALE ) glucose 111.0 mg/dL 60.0-9 9.0 high Not Available [facility] [address] [facility] [address], [place], [address], 04/26/2025 10:07:56 04/26/20 25 04/26/2025 CMP (MALE ) BUN (blood urea nitrogen) 15.0 mg/dL 10.0-2 6.0 Not Available [facility] [address] [facility] [address], [place], [address], 04/26/2025 10:07:56 04/26/20 25 04/26/2025 CMP (MALE ) creatinine (serum) 0.9 mg/dL 0.4-1. 5 Not Available [facility] [address] [facility] [address], [place], [address], 04/26/2025 10:07:56 04/26/20 25 04/26/2025 CMP (MALE ) BUN/creatini ne ratio 16.67 ratio Not Available [facility] [address] [facility], [place], [address], 04/26/2025 10:07:56 04/26/2004/26/2025 CMP (MALE ) eGFR calculated 93.1 Not Available [facility] [address] [facility], [place], [address], 04/26/2025 10:07:56 04/26/2004/26/2025 CMP (MALE ) total protein 7.6 g/dL 6.0-8. 5 Not Available [facility] [address] [facility], [place], [address], 04/26/2025 10:07:56 04/26/2004/26/2025 CMP (MALE ) total bilirubin 0.8 mg/dL 0.2-1. 3 Not Available [facility] [address] [facility] [address], [place], [address], 04/26/2025 10:07:56 04/26/2004/26/2025 CMP (MALE ) albumin 4.4 g/dL 3.5-5. 5 Not Available [facility] [address] [facility], [place], [address], 04/26/2025 10:07:56 04/26/2004/26/2025 CMP (MALE ) globulin 3.2 calc Not Available [facility] [address] [facility] [address], [place], [address], 04/26/2025 10:07:56 04/26/2004/26/2025 CMP (MALE ) AST (SGOT) 24.0 U/L 0.0-46 .0 Not Available [facility] [address] [facility] Jody [facility] [address], [place], [address], 04/26/2025 10:07:56 04/26/2004/26/2025 CMP (MALE ) altv (SGPT) 24.0 U/L 13.0-6 9.0 normal Not Available [facility] [address] [facility] [address], [place], [address], 04/26/2025 10:07:56 04/26/2004/26/2025 CMP (MALE ) A/G ratio 1.4 ratio Not Available [facility] [address] [facility] [address], [place], [address], 04/26/2025 10:07:56 04/26/2004/26/2025 CMP (MALE ) ALP phos 74.0 U/L 30.0-1 40.0 normal Not Available [facility] [address] [facility] [address], [place], [address], 04/26/2025 10:07:56 04/26/2004/26/2025 CMP (MALE ) calcium 9.3 mg/dL 8.4-10 .5 Not Available [facility] [address] [facility] [address], [place], [address], 04/26/2025 10:07:56 04/26/20 25 04/26/2025 CMP (MALE ) sodium 140.0 mmol/ L 136.0- 145.0 Not Available [facility] [address] [facility] [address], [place], [address], 04/26/2025 10:07:56 04/26/20 25 04/26/2025 CMP (MALE ) potassium 4.0 mmol/ L 3.5-5. 1 Not Available [facility] [address] [facility], [place], [address], 04/26/2025 10:07:56 04/26/20 25 04/26/2025 CMP (MALE ) chloride 103.0 mmol/ L 98.0-1 10.0 normal Not Available [facility] [address] [facility] [address], [place], [address], 04/26/2025 10:07:56 04/26/2004/26/2025 CMP (MALE ) C02 28.0 mmol/ L 22.0-3 1.0 Not Available [facility] [address] J[address] [facility], [place], [address], 04/26/2025 10:07:56 04/26/2004/26/2025 CMP (MALE ) anion gap 9.0 calc Not Available [facility] [address] [facility], [place], [address], 04/26/2025 10:07:56 04/26/2004/26/2025 CMP (MALE ) osmolality 290.6 calc Not Available [facility] [address] [facility], [place], [address], 04/26/2025 10:07:56 04/26/2004/26/2025 LIPID PROFI LE (MALE ) cholesterol 105.0 mg/dL 0.0-20 0.0 Not Available [facility] [address] [facility], [place], [address], 04/26/2025 10:07:58 04/26/2004/26/2025 LIPID PROFI LE (MALE ) trig 86.0 mg/dL 0.0-15 0.0 Not Available [facility] [address] [facility], [place], [address], 04/26/2025 10:07:58 04/26/2004/26/2025 LIPID PROFI LE (MALE ) HDL - direct 32.0 mg/dL >40.0 low Not Available [facility] [address] [facility] [address], [place], [address], 04/26/2025 10:07:58 04/26/2004/26/2025 LIPID PROFI LE (MALE ) VLDL - direct 17.2 mg/dL Not Available [facility] [address] [facility] [address], [place], [address], 04/26/2025 10:07:58 04/26/20 25 04/26/2025 LIPID PROFI LE (MALE ) LDL - direct 55.8 mg/dL 0.0-13 0.0 Not Available [facility] [address] [facility] [address], [place], [address], 04/26/2025 10:07:58 04/26/2004/27/2025 PSA, TOTAL PSA, total 0.83 NG/mL < or = 4.00 normal The total PSA value from this assay syste m is stand ardiz ed again st the WHO stand amilcar. The test resul t will be appro ximat sana 20% lower when reese red to the equim olar- stand ardiz ed total PSA ([place] man Coult er). Reese rison of seria l PSA resul ts shoul d be inter prete d with this fact in mind. This test was perfo rmed using the [employer] ns chemi lumin escen t metho d. Value s obtai chsa from diffe rent assay metho ds canno t be used inter barragan eably . PSA level s, regar dless of value , shoul d not be inter prete d as absol quechan evide nce of the prese nce or absen ce of disea se. Not Available [employer] [facility] [address] , [place], [address], 04/27/2025 07:56:48 Result Notes None recorded. Problems Name Problem SNOMED Code Status Onset Date Resolution Date Notes Provider Name and Address Organization Details Recorded Time Generalized anxiety disorder 22231837 Active 2023 RAY Crump - [facility], L.LMckennaCMckenna 08:35:42 Diverticuliti s 221998617 Active 2023 AJ BUTLER null, [facility] 4 09:13:30 Steatotic liver disease 399029660 Active 2023 Levi Diehl MD [address] [place], [address], [facility], LMckennaL.CMckenna 4 08:55:24 Elevated blood-pressur e reading without diagnosis of hypertension 459259201 Active [address] [facility], L.L.CMckenna 4 15:24:14 Dysplastic nevus of skin 838818177 Active [address] 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, CharityLMckennaCMckenna 5 10:40:55 Problem Notes None recorded. Procedures Surgical History Date Name Laterality Status Provider Name and Address Organization Details Recorded Time 04/10/20 25 jr shave biopsy completed Levi Diehl MD [address] [place], [address], [facility], CharityLMckennaCMckenna 04/10/2025 09:19:40 10/04/19 25 arthroscopy of left knee joint completed AJ BUTLER [facility], Paco 10/09/2024 17:31:53 01/19/20 [address] [facility], CharityLMckennaCMckenna 10/09/2024 17:32:32 03/06/20 10 [address] AJ BUTLER [facility], ElzbietaCMckenna 10/09/2024 17:33:06 [address] [facility], [place] 10/09/2024 17:32:02 Carpal tunnel surgery [facility] 08/29/2023 08:37:41 nasal septoplasty [facility] 08/29/2023 08:38:07 catheterization of left heart [facility] 08/29/2023 08:39:32 Imaging Results None recorded. Procedure [...] mass index (BMI) Body weight Body temperature Oxygen saturation Oxygen saturation in Arterial blood by Pulse oximetry Heart rate Systolic And Diastolic Provider Name and Address Organization Details Last Updated DateTime 5 172.72 cm 37.4 kg/m2 466579. 72 g 97.5 [degF] 98 % 98 % 74 /min 120/68 mm[Hg] [facility] 5 08:54:43 Date Recorded Body height Body mass index (BMI) Body weight Body temperature Heart rate Oxygen saturation Oxygen saturation in Arterial blood by Pulse oximetry Systolic And Diastolic Provider Name and Address Organization Details Last Updated DateTime 5 172.72 cm 37.1 kg/m2 846065. 54 g 98.4 [degF] 67 /min 97 % 97 % 120/78 mm[Hg] [facility] 5 09:10:57 Date Recorded Body height Body mass index (BMI) Body weight Body temperature Heart rate Oxygen saturation Oxygen saturation in Arterial blood by Pulse oximetry Systolic And Diastolic Provider Name and Address Organization Details Last Updated DateTime 5 172.72 cm 36.5 kg/m2 069719. 17 g 97.9 [degF] 109 /min 97 % 97 % 126/74 mm[Hg] Narcisa Schaeffer [facility] 5 12:00:40 Social History Question Answer Notes LastModified by 24/7 Card Details LastModified Time Tobacco Smoking Status Former Smoker AJ LUKE nova [facility] 08/29/2023 08:37:09 What Was The Date Of Your Most Recent Tobacco Screening? 04/10/2025 [email or web address] Information not available 04/10/2025 Sex: Unknown Functional Status Question Answer Note LastModified by 24/7 Card Details LastModified Time Do you use any illicit or recreational drugs? No [email or web address] Information not available 08/29/2023 Do you or have you ever used any other forms of tobacco or nicotine? No [email or web address] Information not available 08/29/2023 What is your level of alcohol consumption? None [email or web address] Information not available 08/29/2023 Do you or have you ever used any nicotine-free cigarettes, vape, or chewing tobacco? No [email or web address] Information not available 05/01/2025 Mental Status None recorded. Family History Relationship Description Onset Age of this Age Resolved Age Notes LastModified by Organization Details LastModified Time Mother Diabetes mellitus [email or web address] Not available 08/29 08:36:09 Maternal Grandmother Diabetes mellitus Not available 08/29 08:36:13 Medical History No medical history recorded. Immunizations Vaccine Type Date Status Note Provider Nam e and Address Organization Details Recorded Time Influenza, MDCK, quadrivalent, PF 0 completed Not Available [facility] 02/19/2023 02:23:32 Influenza, split virus, trivalent, preservative 2 completed Not Available [facility] 02/19/2023 02:23:32 Td(adult) unspecified formulation 2 completed Not Available [facility] 02/19/2023 02:23:32 Influenza, split virus, trivalent, preservative 5 completed Not Available [facility] 02/19/2023 02:23:32 Past Encounters Encounter ID Performer Location Encounter Start Date Encounter Closed Date Diagnosis/Indication Diagnosis SNOMED-CT Code Diagnosis ICD10 Code Diagnosis IMO Codes Diagnosis Note [id number] DUSTIN SEE [facility] ([facility]) [address] [place] [id number] 12/17/2022 14:03:41 12/17/2022 19:11:38 Chest discomfort 706766417 R07.89 Reassured with normal EKG. Discussed with patient that due to pain being reproducib le, do not feel like this is cardiac in nature. Appears to be musculoske letal per exam and EKG findings. Pain does not worsen with activity or ambulation . Pain is not associated with SOB or dizziness. Allergic rhinitis 053300 04 J30.9 Continue daily zyrtec. Start daily flonase. Push fluids. Recommend cool mist humidifier at night. If worsening condition or no improvemen t in 7-10 days, return for further evaluation . Costal chondritis 110055 04 M94.0 Encouraged to use ice/heat packs as well as ibuprofen for the next 2-3 days to see if there is any improvemen t. If having severe chest pain, SOB, or dizziness, go to ED. Discussed with patient that if the pain is not improving in 2-3 days, return for probably chest x-ray. [id number] VELIA DIEHL PA-C [facility] ([facility]) [address] [place] [id number] 01/10/2023 09:43:35 01/10/2023 13:30:01 Acute sinusitis 71706679 J01.90 [id number] Levi Diehl MD [facility] ([facility]) [address] [place] [id number] 01/14/2023 08:03:20 01/14/2023 13:40:44 Allergic rhinitis 70644552 J30.9 Generalize d anxiety disorder 73152139 F41.1 Lipoma of back 343788901 D17.1 Reduced libido 3894010 R 68.82 Adult heal th examination 419210391 Z00.00 [id number] PIERRE MCNEILL [facility] ([facility]) [address] [place] [id number] 05/28/2023 11:39:34 05/28/2023 12:36:12 Diverticulitis 168188442 K57.92 [id number] Jose Hein MD [facility] ([facility]) [address] [place] [id number] 07/07/2023 09:54:34 07/07/2023 11:05:53 Sore throat 369413384 J02.9 Patient tested negative for strep and COVID. Acute sinusitis 27685455 J01.90 Likely bacterial sinusitis based on exam and history. discussed supportive care including OTC meds and sinus rinses. we will start abx. [id number] Levi Diehl MD [facility] ([facility]) [address] [place] [id number] 08/29/2023 08:29:41 08/29/2023 11:20:47 Dysuria 93087486 R30.0 Bilateral testicular pain 7076991780 6515299 N50.811 Pain of left testicle 16 74788771 9133282 N50.812 Diverticulitis 760515036 K57.92 Significan t increase in pain this morning associated with need to have a bm. This could be due to challengin g the bowel with pulled pork last evening, or could be due to developmen t of complicate d diverticul itis. testicular pain seems to be referred. ua is pending. Given the acute exacerbati on of pain with guarding, and the degree of pain he reports from this morning, I feel he needs a repeat CT scan to assess for complicate d diverticul itis. [id number] Levi Diehl MD [facility] ([facility]) [address] [place] [phone] 08/31/2023 08:28:51 08/31/2023 09:13:56 Diverticulitis 030385754 K57.92 it is noted flagyl is under dosed. changing this is likley to help him get over the hump. he will message tuesday and update me on progress and gradually advance diet gi soft add10 grams of fiber per day. if worsening will see me right away orto ER. [id number] Levi Diehl MD [facility] ([facility]) [address] [place] [id number] 09/06/2023 08:35:52 09/06/2023 09:21:23 Diverticulitis 472501177 K57.92 has had a ham sandwich and some other harder to digest things. he will finish 10 days of tx. [id number] Levi Diehl MD [facility] ([facility]) [address] [place] [id number] 5 09/14/2023 08:58:02 09/14/2023 09:38:20 Diverticulitis 415982028 K57.92 f/u as needed [id number] Levi Diehl MD [facility] ([facility]) [address] [place] [id number] 11/01/2023 08:18:00 11/01/2023 08:42:26 Diverticulitis 929653857 K57.92 [id number] Levi Diehl MD [facility] ([facility]) [address] [place] [id number] 5 12/06/2023 09:02:02 12/06/2023 09:58:55 [id number] Levi Diehl MD [facility] ([facility]) [address] [place] [id number] 5 02/14/2024 08:37:22 02/14/2024 17:32:43 Active or passive immunization 744808605 Z23 Adult heal th examination 358351413 Z00.01 Screening for cardiovascular system disease 241353645 Z13.6 Screening for malignant neoplasm of colon 472870022 Z12.11 colonoscop y up to date Steatotic liver disease 272787013 K76.0 extensive counseling on dietary change he reports my diet is horrible w e discussed DASH diet principles Change in skin lesion 39 3984834 L98.9 right forearm [id number] Levi Diehl MD [facility] ([facility]) [address] [place] [id number] 5 05/02/2024 08:42:15 05/02/2024 10:36:59 Elevated blood-pressure reading without diagnosis of hypertension 607715578 R03.0 before the office visit he was feeling overwhelme d and started taking his bp. need to really drop the sodium out of the diet. he is eating a lot of high sodium food. he eats out fast food most days he works 3 times per week. [id number] PIERRE HICKMAN [facility] ([facility]) [address] [place] [id number] 08/14/2024 09:59:55 08/14/2024 10:56:02 Sore throat 141450893 J02.9 Acute bact erial bronchitis 608819516 J20.9 Discussed use of otc medication s for symptom management .Push oral fluids and rest.If you develop fever, sob, or start feeling worse then return for re-evaluat ion. [id number] Levi Diehl MD [facility] ([facility]) [address] [place] [id number] 5 08/24/2024 08:30:43 08/24/2024 10:57:39 Synovial popliteal cyst of left knee 0621810672 M71.22 will treat conservati vely but may need MRI if sx's persist [id number] Levi Diehl MD [facility] ([facility]) [address] [place] [id number] 5 04/10/2025 08:44:00 04/11/2025 16:52:42 Changing shape of pigmented skin lesion 817976081 L81.9 [id number] [id number] Levi Diehl MD [facility] ([facility]) [address] [place] [id number] 5 05/01/2025 08:47:58 05/07/2025 08:28:32 Active or passive immunization 091124864 Z23 Well adult 151248109 Z00 .00 40985325 Generalize d anxiety disorder 91619111 F41.1 [id number] Levi Diehl MD [facility] ([facility]) [address] [place] [id number] 5 04/26/2025 09:04:43 04/29/2025 12:07:16 Physical examination 2849140 Z00.00 [id number] Levi Diehl MD [facility] ([facility]) [address] [place] [address] 05/28/2025 11:52:44 05/28/2025 12:31:17 Right lower quadrant pain 922431845 R10.31 [id number] Tenderness of right lower quadrant of abdomen [id number] R10.813 [id number] Nausea [id number] R11.0 72552 Health Concerns Section Related Observation LastModified by Organization Detai ls LastModified Time None Recorded Concern Status LastModified by Organization Details LastModified Time None Recorded Advance Directives Directive None Recorded Payers Insurance Date Sequence Insurance Name Policy Number Policy Marrero Covered Member ID Marrero Member ID Guarantor Name 05/28/2025 1 [id number] ([id number]) [id number] Adam Faye [id number] Adam Faye Notes Date Note Type Note Provider Name and Address Organization Details Recorded Time 08/24/2024 text/html he woke up with pain behind his left knee Tuesday (3 days ago).he was doing his normal routine the day before which c/o standing squatting lifting bending etc.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 Levi Diehl MD [address] [place] [address], [phone], [facility], [facility]. 08/24/2024 08:53:37 04/10/2025 text/html Skin LesionRepor jose david by PatientHPIFor location, patient reportsarm (right forearm). For duration, patient reports___ months. For timing, patient reportsgradualandconst ant. For associated symptoms, patient reportsno lesions multiplyingandno lesions spreading(patient feels the lesion is getting harder).ROS as noted in the HPI Levi Diehl MD [address] [place] [address], [phone], [facility], Jamie. 04/10/2025 09:20:13 05/01/2025 text/html Generalized Anxi ety DisorderReported by PatientHPIFor onset/timing, patient reports___ years. For associated symptoms, patient reportsno difficulty concentrating,no difficulty controlling worry,no anxiety, andno sleep disturbances.Patient reports that as long as he takes his medication his sxs are well controlled.ROS as noted in the HPI hyperglycemia: Fasting glucose 111 Levi Diehl MD [address] [place] [address], [phone], [facility] 05/01/2025 09:32:07 05/28/2025 text/html Abdominal PainRe ported by PatientAbdominal [...] no mucus.no vomiting but he is nauseated. Levi Diehl MD [address] [place] [address], [phone], [facility] 05/28/2025 12:31:15
--- OUTSIDE RECORDS SUMMARY | 2025-05-28 11:55 | XMS_ITS | Patient Health Record ---
Author Organization [facility] Address [address] [place] [address] Support Name Relationship Address Phone Lorna Morrison Emergency Contact Unknown Adam Faye Guarantor Unknown [phone] Results Component Value Reference Range Notes Schedule Confirmation Reviewed date:09/04/2024 08:36:13 AM Interpretation: Performing Lab: Notes/Report: Nurse Assessment-Cardiac Screening Schedule Confirmation Reviewed date:09/04/2024 08:36:13 AM Interpretation: Performing Lab: Notes/Report: US Ankle Brachial Pressure Index Screen Schedule Confirmation Reviewed date:09/04/2024 08:36:13 AM Interpretation: Performing Lab: Notes/Report: CT Cardiac Calcium Scoring Screening RAD Schedule Confirmation Reviewed date:09/04/2024 08:36:13 AM Interpretation: Performing Lab: Notes/Report: Lipid Panel CSP Schedule Confirmation Reviewed date:07/10/2024 08:40:51 AM Interpretation: Performing Lab: Notes/Report: Nurse Assessment-Cardiac Screening Schedule Confirmation Reviewed date:07/10/2024 08:40:51 AM Interpretation: Performing Lab: Notes/Report: US Ankle Brachial Pressure Index Screen Schedule Confirmation Reviewed date:07/10/2024 08:40:51 AM Interpretation: Performing Lab: Notes/Report: CT Cardiac Calcium Scoring Screening RAD Schedule Confirmation Reviewed date:07/10/2024 08:40:51 AM Interpretation: Performing Lab: Notes/Report: Lipid Panel CSP Reason For Referral No Information Medications Medication SIG (Take, Route, Frequency, Duration) Notes Start Date End Date Status ZyrTEC *please review f or potential update for e-prescription and drug interaction check* Active Citalopram Hydrobromide *please review for potential update for e-prescription and drug interaction check* Active Omeprazole 20 MG Capsule Delayed Release 1 cap(s) po q day. Oral; Duration: 30 Omeprazole 20mg Capsules, Extended Release 1 cap(s) po q day. 07/02/2009 Active Amoxicillin 875 MG Tablet 1 tablet Orally every 12 hrs; Duration: 7 days 01/20/2017 Active Sertraline HCl 25 MG Tablet Take 1 tablet(s) by mouth daily Oral; Duration: 30 Sertraline HCl 25mg Tablet Take 1 tablet(s) by mouth daily #30 (Thirty) tablet(s) 07/23/2009 Active Piroxicam 20 MG Capsule Take 1 capsule(s) by mouth daily Oral; Duration: 30 Piroxicam 20mg Capsules Take 1 capsule(s) by mouth daily #30 (Thirty) capsule(s) 07/02/2009 Active Citalopram 20 MG Oral Tablet Citalopram 20 MG Oral Tablet 12/07/2018 Active Sudafed 30 MG Tablet 1 tablet as needed Orally every 6 hrs; Duration: 6 days 01/20/2017 Active Immunizations Vaccine Route Administration Date Status Comme nts Influenza (whole), CPT 46787 Inactive Unknown 12/07/2018 Administered Social History Social History Additional Details Category Social Info Options Details zzMigrated Social History Migrated Social History Smoking Status:Ex-smoker (finding) Problems Problem Type SNOMED Code ICD Code Onset Dates Problem Status W/U Status Risk Notes Problem Heartburn (86997969) Heartburn (787.1) 07/02/20 09 Problem resolved confirmed [id number]- Problem Dizziness (208240196) Dizziness (780.4) 04/01/20 05 Problem resolved confirmed [id number]- Problem Low back pain (352082448) Low back pain (724.2) 07/02/20 09 Active confirmed [id number]- Problem Viral warts (56047122) Viral warts (078.19) 07/23/20 09 Problem resolved confirmed [id number]- Problem Elevated levels of transaminase & lactic acid dehydrogenase (230251003) Elevated SGPT (ALT) (790.4) 09/17/19 06 Problem resolved confirmed [id number]- Problem Insomnia (397777199) Insomnia (307.41) 12/22/19 07 Problem resolved confirmed [id number]- Problem Anxiety (60094009) Anxiety (300.02) 07/23/20 09 Problem resolved confirmed [id number]- Problem Ehrlichiosis (082.49) 12/22/19 07 Problem resolved confirmed [id number]- Problem Acute sinusitis (26623398) Acute sinusitis (461.8) 07/23/20 09 Problem resolved confirmed [id number]- Problem Hypertrophy of tonsils (99630726) Hypertrophy of tonsils (474.11) 04/01/20 05 Problem resolved confirmed [id number]- Plan Of Treatment No Information Medical (General) History Medical History History ICD Code Seasonal allergies Appendectomy Gallbladder removal Bilat carpel tunnel surgery Surgical History Surgery Date(Month/Year) Appendectomy: 2008; Carpal Tunnel Releas e bilat;
--- OUTSIDE RECORDS SUMMARY | 2025-05-28 11:55 | XMS_ITS | Encounter Summary ---
Author Organization [facility] Address [address] [place] [address] Care Team Providers Care It Support Specialist Name Role Phone Ham Corbin MD Primary Care Provider Encounter Details Date Type Department Care Team (Latest Contact Info) Description 05/09/2002 Outpatient Historical [facility] Occupational Medicine-[facility] Andrea [address] [facility] [facility] [address] [place] [phone] SHIAR BASS [address] 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
--- OUTSIDE RECORDS SUMMARY | 2025-05-28 11:56 | XMS_ITS | Encounter Summary ---
Author Organization [facility] Address [address] [place] [address] Care Team Providers Care Shot Dropper Name Role Phone Ham Corbin MD Primary Care Provider [phone] Encounter Details Date Type Department Care Team (Late st Contact Info) Description 04/03/2002 Outpatient Historical [facility] [address] [place] [phone] Social History Tobacco Use Types Packs/Day Years Used Date Smoking Tobacco: Never Assessed Sex and Gender Information Value Date Recorded Sex Assigned at Not on file 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
--- OUTSIDE RECORDS SUMMARY | 2025-05-28 11:56 | XMS_ITS | Encounter Summary ---
Author Organization [facility] Address [address] [place] [address] Care Team Providers Care Automotive Refinisher Name Role Phone Ham Corbin MD Primary Care Provider [phone] Encounter Details Date Type Department Care Team (Late st Contact Info) Description 07/11/2001 Outpatient Historical [facility] PLASTIC SURGERY Inder Blank MD [address] [facility] [address] [place] [phone] POSTSURG AFTERCARE OTHER SPECIFIED (Primary Dx) Social History Tobacco Use Types Packs/Day Years Used Date Smoking Tobacco: Never Assessed Sex and Gender Information Value Date Recorded Sex Assigned at Not on file 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
--- OUTSIDE RECORDS SUMMARY | 2025-05-28 11:56 | XMS_ITS | Encounter Summary ---
Author Organization [facility] Address [address] [place] [address] Care Team Providers Care Director Camp Name Role Phone Ham Corbin MD Primary Care Provider [phone] Encounter Details Date Type Department Care Team (Latest Contact Info) Description 03/14/2002 Outpatient Historical [facility] Occupational Medicine-[facility] Andrea [address] [facility] [address] [place] [phone] SHIRA BASS [address] 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
--- OUTSIDE RECORDS SUMMARY | 2025-05-28 11:56 | XMS_ITS | Encounter Summary ---
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
--- OUTSIDE RECORDS SUMMARY | 2025-05-28 11:56 | XMS_ITS | Encounter Summary ---
Author Organization [facility] Address [address] [place] [address] Care Team Providers Care Nurse Technician Name Role Phone Ham Corbin MD Primary Care Provider [phone] Encounter Details Date Type Department Care Team (Latest Contact Info) Description 09/08/2001 Outpatient Historical [facility] Noe Rey Jr., MD [address] [place] [address] Pure hypercholesterolem (Primary Dx); TOBACCO USE DISORDER Social History Tobacco Use Types Packs/Day Years Used Date Smoking Tobacco: Never Assessed Sex and Gender Information Value Date Recorded Sex Assigned at Not on file 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
--- OUTSIDE RECORDS SUMMARY | 2025-05-28 11:56 | XMS_ITS | Patient Health Record ---
Author Organization [employer] [facility] Address [address] [place] [address] Support Name Relationship Address Phone Lorna Morrison Emergency Contact Unknown Adam Faye Guarantor Unknown [phone] Reason For Referral No Information Medications Medication SIG (Take, Route, Frequency, Duration) Notes Start Date End Date Status ZyrTE *please review f or potential update for e-prescription and drug interaction check* *Reorder from [employer] for eRx and Interaction Alerts* Active Citalopram Hydrobromide *please review for potential update for e-prescription and drug interaction check* *Pick strength-form from [employer] for eRX* Active Sertraline HCl 25 MG Take 1 tablet(s) by mouth daily Oral; Duration: 30 Sertraline HCl 25mg Tablet Take 1 tablet(s) by mouth daily #30 (Thirty) tablet(s) 07/23/2009 Active Piroxicam 20 MG Take 1 capsule(s) by mouth daily Oral; Duration: 30 Piroxicam 20mg Capsules Take 1 capsule(s) by mouth daily #30 (Thirty) capsule(s) 07/02/2009 Active Citalopram 20 MG Oral Tablet Citalopram 20 MG Oral Tablet *Reorder from [employer] for eRx and Interaction Alerts* 12/07/2018 Active Amoxicillin 875 MG 1 tablet Orally every 12 hrs; Duration: 7 days 01/20/2017 Active Sudafed 30 MG 1 tablet as needed Orally every 6 hrs; Duration: 6 days 01/20/2017 Active Omeprazole 20 MG 1 cap(s) po q day. Oral; Duration: 30 Omeprazole 20mg Capsules, Extended Release 1 cap(s) po q day. 07/02/2009 Active Immunizations Vaccine Route Administration Date Status Comme nts Influenza (whole), CPT 94290 Inactive Unknown 12/07/2018 Administered Problems Problem Type SNOMED Code ICD Code Onset Dates Problem Status W/U Status Risk Notes Problem Low back pain (622897646) Low back pain (724.2) 07/02/20 09 Active confirmed [id number]- Problem Heartburn (01051207) Heartburn (787.1) 07/02/20 09 Problem resolved confirmed [id number] 11- Problem Elevated levels of transaminase & lactic acid dehydrogenase (674211822) Elevated SGPT (ALT) (790.4) 09/17/19 06 Problem resolved confirmed [id number] 11- Problem Insomnia (023423538) Insomnia (307.41) 12/22/19 07 Problem resolved confirmed [id number] 11- Problem Viral warts (36583370) Viral warts (078.19) 07/23/20 09 Problem resolved confirmed [id number] 11- Problem Hypertrophy of tonsils (24687664) Hypertrophy of tonsils (474.11) 04/01/20 05 Problem resolved confirmed [id number] 11- Problem Anxiety (10254817) Anxiety (300.02) 07/23/20 09 Problem resolved confirmed [id number] 11- Problem Ehrlichiosis (082.49) 12/22/19 07 Problem resolved confirmed [id number] 11- Problem Acute sinusitis (27288945) Acute sinusitis (461.8) 07/23/20 09 Problem resolved confirmed [id number] 11- Problem Dizziness (495492088) Dizziness (780.4) 04/01/20 05 Problem resolved confirmed [id number] 11- Plan Of Treatment No Information Medical (General) History Medical History History ICD Code Seasonal allergies Appendectomy Gallbladder removal Bilat carpel tunnel surgery Surgical History Surgery Date(Month/Year) Appendectomy: 2008; Carpal Tunnel Releas e bilat;
--- NOTE | 2025-05-28 11:57 | ED_ITS ---
HPI - Abdominal Pain 2 General: Chief Complaint: Abdominal Pain Stated Complaint: R side abd pain Time Seen by Provider: 05/28/25 11:56 History of Present Illness: 54-year-old man with a history of anxiet y, diverticulosis, cholecystectomy and appendectomy who presents emergency room with right lower quadrant abdominal pain. This is been going on for couple of days. He was seen by his PCP who sent him to the emergency room today. He had a normal bowel movement this morning. No nausea or vomiting. No dysuria. No fevers. No altered mental status. Related Data Home Medications ?Medication ?Instructions ?Recorded ?Confirmed alprazolam 0.5 mg tablet See Rx Instructions .Route . COMPLEX 08/26/23 05/28/25 hydrocortisone 2.5 % topical cream See Rx Instructions .Route .COMPLEX 05/28/25 05/28/25 ibuprofen 200 mg tablet (Advil) 400 mg PO Q6H PRN Feve r Or Pain 05/28/25 05/28/25 ketoconazole 2 % topical cream See Rx Instructions .Ro [place] .COMPLEX 05/28/25 05/28/25 Previous Rx's ?Medication ?Instructions ?Recorded citalopram 20 mg tablet See Rx Instructions .Route 1 .COMPLEX #90 tabs Allergies Allergy/AdvReac Type Severity Reaction Status Date / Time No Known Allergies Allergy Verified 05/28/25 11:55 Review of Systems 2 Narrative: Constitutional symptoms: Negative except as documented in HPI. Skin symptoms: Negative except as documented in HPI. Eye symptoms: Negative except as documented in HPI. ENMT symptoms: Negative except as documented in HPI. Respiratory symptoms: Negative except as documented in HPI. Cardiovascular symptoms: Negative except as documented in HPI. Gastrointestinal symptoms: Negative except as documented in HPI. Genitourinary symptoms: Negative except as documented in HPI. Musculoskeletal symptoms: Negative except as documented in HPI. Neurologic symptoms: Negative except as documented in HPI. Psychiatric symptoms: Negative except as documented in HPI. Endocrine symptoms: Negative except as documented in HPI. PFSH ED 2 PFSH: Medical History (Updated 05/28/25 @ 13:51 by Lizet Anthony MD) Multiple joint pain Allergic rhinitis due to allergen Surgical History (Updated 07/22/23 @ 09:42 by Ron Vital MD) History of cholecystectomy History of appendectomy Social History Smoking and tobacco/nicotine status: former use of tobacco/nicotine Physical Exam 2 Narrative: EXAM NARRATIVE: General: Alert, no acute distress. Skin: Warm, dry. Head: Normocephalic, atraumatic. Neck: Supple, trachea midline. Eye: Extraocular movements are intact. Ears, nose, mouth and throat: mucosa moist. Cardiovascular: Regular, Normal peripheral perfusion. Respiratory: Lungs are clear to auscultation, respirations are non-labored, breath sounds are equal, Symmetrical chest wall expansion. Gastrointestinal: Soft, moderate right lower quadrant tenderness, Non distended Musculoskeletal: Normal ROM, no deformity. Neurological: Alert and oriented, No focal neurological deficit observed. Psychiatric: Cooperative, appropriate mood & affect. Course 2 Vital Signs: Vital signs: Vital Signs Temperature 100 F H 05/28/25 13:14 Pulse Rate 105 H 05/28/25 13:14 Respiratory Rate 16 05/28/25 13:14 Blood Pressure 142/79 05/28/25 13:14 Pulse Oximetry 94 05/28/25 13:14 Oxygen Delivery Me thod Room Air 05/28/25 13:14 MDM - Abdominal Pain Medical Decision Making Medical decision making: Patient's reason for coming to the emergency room: Right lower quadrant abdominal pain Social determinants: Patient is employed. Has a life partner who is present in the room. She is an employee of the hospital I reviewed the patient's medical record. 54-year-old man with a history of anxiety, diverticulosis, cholecystectomy and appendectomy I reviewed the patient's current home meds Patient currently takes Xanax, citalopram and ibuprofen. Alternate historians: Patient provides sufficient history Differential diagnosis for this patient with right lower quadrant abdominal pain including but not limited to and based on the above HPI, review of systems and physical exam: Ureterolithiasis. Urinary tract infection. Appendicitis. colitis. small bowel obstruction. Crohn's flare. Pancreatitis. Cholelithiasis or cholecystitis. Hepatitis. Diverticulitis. Constipation. ovarian cyst. ovarian torsion Workup: Orders were placed to evaluate differential diagnosis based on the above differential, HPI and exam: Lab Review: Laboratory results were reviewed and interpreted by myself the emergency room physician. Leukocytosis white count 14,000. No anemia. No renal failure. CRP is quite elevated. AST and ALT are normal. Urinalysis is negative for infection. CT of the abdomen and pelvis with contrast: Acute diverticulitis in the right lower quadrant with probably a small contained diverticular perforation with a small air-containing collection measuring less than 1 cm. No drainable abscess at this time. I discussed the findings with radiologist on-call. This was reviewed and interpreted by myself the emergency room physician. I also reviewed the radiology report. Assessment of risk: Level of risk: Moderate. Patient does have a history of diverticulitis. Hospitalization considerations: Patient is being admitted. I have concerns for SIRS/sepsis associated with his diverticulitis. He is mildly tachycardic has a elevated white count and a temp of 100.0. Reexamination: Patient remained stable. No increased work of breathing. No altered mental status. No focal motor deficits. Patient has better controlled pain after having some Dilaudid. Consultation: I spoke with Dr. Simeon who is on-call for hospitalist service who agrees to admission. He request consultation with general surgery. Consultation: I spoke with Dr. Rojas who is on-call for general surgery. He recommends every 8 hour Zosyn. Fluids. Is okay with admission. Assessment and plan: Diverticulitis Small diverticular perforation Possible sepsis ?Patient has white count of 14,000, borderline fever and tachycardia. At the time severe diverticulitis was called to me I added blood cultures, lactate, the remaining fluids for sepsis treatment. This is around 1325. -2.5 L normal saline bolus. Fluid volumes based on ideal body weight. -Broad-spectrum antibiotics were administered. Cipro and Flagyl. -Sepsis quality measures. -Lactic acid with a reflex was ordered. -Blood cultures were ordered. ?I reevaluated the patient's volume status after sepsis fluids were given. -I discussed the patient with the hospitalist on-call who is admitting the patient. - Discussed findings and plan with patient. Answered any questions. - All laboratory values were reviewed and interpreted personally by myself, the ER physician - All imaging was reviewed and interpreted personally by myself, the ER physician. - Evaluation and treatment of this problem were appropriate in the emergency setting Critical Care: -I spent a total of 36 minutes of critical care time managing the patient, independent of any other practitioner. -The time involved in the performance of separately reportable procedures was not counted towards critical care time. Lab Data 05/28/25 12:23 05/28/25 12:23 Labs/Radiology: Radiology Impressions Abdomen/Pelvis CT 05/28/25 12:05 IMPRESSION: Acute diverticulitis in the RIGHT lower quadrant with probably a small contained diverticular perforation with a small air and fluid collection measuring 1.0 x 0.7 cm. No drainable abscess at this time. Recommend follow-up to resolution. Notified Lizet Anthony MD at 05/28/2025 1:25 PM. Laboratory Results WBC 14.53 10^3/uL (3.29-11.43) H 05/28/25 12:23 RBC 5.16 10^6/uL (3.85-5.65) 05/28/25 12:23 Hgb 15.00 g/dL (11.27-16.99) 05/28/25 12:23 Hct 45.7 % (37-53) 05/28/25 12:23 MCV 88.6 fl (82-101) 05/28/25 12:23 MCH 29.1 pg (27-33) 05/28/25 12:23 MCHC 32.8 g/dL (30-55) 05/28/25 12:23 RDW 12.9 % (12.1-15.1) 05/28/25 12:23 Plt Count 291 10^3/cmm (157-399) 05/28/25 12:23 MPV 10.2 fL (7.4-10.4) 05/28/25 12:23 Neut % (Auto) 78.8 % 05/28/25 12:23 Lymph % (Auto) 10.8 % 05/28/25 12:23 Rock % (Auto) 8.9 % 05/28/25 12:23 Eos % (Auto) 0.4 % 05/28/25 12:23 Baso % (Auto) 0.6 % 05/28/25 12:23 Neut # (Auto) 11.45 10^3/uL (1.8-7.7) H 05/28/25 12:23 Lymph # (Auto) 1.6 10^3/uL (0.8-4.8) 05/28/25 12:23 Rock # (Auto) 1.3 10^3/uL (0.2-0.9) H 05/28/25 12:23 Eos # (Auto) 0.1 10^3/uL (0.0-0.8) 05/28/25 12:23 Baso # (Auto) 0.1 10^3/uL (0.0-0.1) 05/28/25 12:23 Nucleated RBC % (auto) 0 % 05/28/25 12:23 Nucleated RBCs # 0.0 /100WBC 05/28/25 12:23 Sodium 135 mmol/L (136-145) L 05/28/25 12:23 Potassium 3.9 mmol/L (3.5-5.1) 05/28/25 12:23 Chloride 98 mmol/L (98-107) 05/28/25 12:23 Carbon Dioxide 22 mmol/L (22-29) 05/28/25 12:23 Anion Gap 18.9 (5-19) 05/28/25 12:23 BUN 14 mg/dL (6-20) 05/28/25 12:23 Creatinine 0.8 mg/dL (0.7-1.2) 05/28/25 12:23 GFR Calculation 100.4 mL/min (90-130) 05/28/25 12:23 Glucose 91 mg/dL (65-115) 05/28/25 12:23 Calculated Osmolality 280 mOsm/kg (285-295) L 05/28/25 12:23 Calcium 9.2 mg/dL (8.5-10.5) 05/28/25 12:23 Total Bilirubin 0.7 mg/dL (0.15-1.2) 05/28/25 12:23 AST 14 U/L (0-40) 05/28/25 12:23 ALT 17 U/L (0-41) 05/28/25 12:23 Alkaline Phosphatase 68 U/L (40-130) 05/28/25 12:23 C-Reactive Protein 104.7 mg/L (0.0-4.9) H 05/28/25 12:23 Total Protein 7.7 g/dL (6.6-8.7) 05/28/25 12:23 Albumin 4.2 g/dL (3.5-5.2) 05/28/25 12:23 Globulin 3.5 g/dL (1.3-4.6) 05/28/25 12:23 Lipase 19 U/L (13-60) 05/28/25 12:23 Urine Color Yellow (Yellow) 05/28/25 12:47 Urine Appearance Clear (CLEAR) 05/28/25 12:47 Urine pH 6.0 (5-7) 05/28/25 12:47 Ur Specific [place] 1.029 (1.005-1.030) 05/28/25 12:47 Urine Protein 1+ (Negative) A 05/28/25 12:47 Urine Glucose (UA) Negative (Normal) 05/28/25 12:47 Urine Ketones 4+ (Negative) 05/28/25 12:47 Urine Blood Negative (Negative) 05/28/25 12:47 Urine Nitrate Negative (Negative) 05/28/25 12:47 Urine Bilirubin Negative (Negative) 05/28/25 12:47 Urine Urobilinogen 1.0 mg/dL (Negative) 05/28/25 12:47 Ur Leukocyte Esterase Negative (Negative) 05/28/25 12:47 Urine RBC 0-2 /hpf (0-2) 05/28/25 12:47 Urine WBC 0-5 /hpf (0-5) 05/28/25 12:47 Ur Squamous Epith Cells 0-5 /hpf (0-5) 05/28/25 12:47 Amorphous Sediment Not Reportable 05/28/25 12:47 Urine Bacteria None seen /hpf (NONE) 05/28/25 12:47 Hyaline Casts 1.21 /lpf 05/28/25 12:47 All radiology interpretation(s) finalized by discharge Discharge Plan Discharge Patient Disposition: Admitted As Inpatient Clinical Impression: Diverticulitis, Sepsis Condition: Stable Coding Level of Care Code ED [employer] for [employer] Pal
--- NOTE | 2025-05-28 12:05 | CT_ITS ---
WS: [id number] CT ABDOMEN PELVIS TECHNIQUE: Contrast-enhanced CT of the abdomen and pelvis with coronal and sagittal reformatted images. CLINICAL INFORMATION: Abdominal pain COMPARISON: 08/29/23 DLP: 1011.[address] scans at [facility] use at least one of these dose optimization techniques: automated exposure control; mA and/or kV adjustment per patient size (includes targeted exams where dose is matched to clinical indication); or iterative reconstruction. FINDINGS: Inflammatory stranding and edema in the RIGHT lower quadrant about the sigmoid colon compatible with acute diverticulitis. Suspected small contained perforation with a tiny amount of fluid. No drainable abscess at this time. Recommend interval follow-up after treatment. Small pericolonic air and fluid collection measures 1.0 x 0.7 cm. Inflammation of adjacent small bowel loops in the RIGHT lower quadrant. Hepatomegaly. Fatty liver. Portal vein and splenic vein are patent. Tiny esophageal hiatal hernia. Normal pancreatic parenchymal enhancement. Adrenal glands are normal. Normal renal parenchymal enhancement. No hydronephrosis in either kidney. Small fat-containing umbilical hernia. Lung bases are well a erated. Mild prostate enlargement measuring 3.[address]/CT abdomen pelvis w con* [id number] IMPRESSION: Acute diverticulitis in the RIGHT lower quadrant with probably a small containe d diverticular perforation with a small air and fluid collection measuring 1.0 x 0.7 cm. No drainable abscess at this time. Recommend follow-up to resolution. Notified Lizet Anthony MD at 05/28/2025 1:25 PM.
[2025-05-28 12:36] LABS: Hematocrit 45.7 % (37-53); Hemoglobin 15.00 g/dL (11.27-16.99); Mean Corpuscular HGB Conc 32.8 g/dL (30-55); Mean Corpuscular Hemoglobin 29.1 pg (27-33); Mean Corpuscular Volume 88.6 fl (82-101); Nucleated Red Blood Cells % 0 %; Platelet Count 291 10^3/cmm (157-399); Red Blood Count 5.16 10^6/uL (3.85-5.65); White Blood Count 14.53 10^3/uL (3.29-11.43)
[2025-05-28] MEDS: ondansetron 2 mg/ML SDV 2 mL 4 MG IVP ×2 (12:37→15:56)
[2025-05-28] MEDS: HYDROmorphone 0.5 MG/0.5 ML INJ 1 MG IVP ×4 (12:41→22:38)
[2025-05-28 12:52] LABS: Alanine Aminotransferase 17 U/L (0-41); Albumin Level 4.2 g/dL (3.5-5.2); Alkaline Phosphatase 68 U/L (40-130); Anion Gap 18.9 (5-19); Aspartate Amino Transferase 14 U/L (0-40); Blood Urea Nitrogen 14 mg/dL (6-20); Calcium 9.2 mg/dL (8.5-10.5); Carbon Dioxide 22 mmol/L (22-29); Chloride 98 mmol/L (98-107); Creatinine Clr Calc Pharmacy 123.4826; Globulin 3.5 g/dL (1.3-4.6); Glucose 91 mg/dL (65-115); Lipase 19 U/L (13-60); Osmolality Calculated 280 mOsm/kg (285-295); Potassium 3.9 mmol/L (3.5-5.1); Sodium 135 mmol/L (136-145); Total Protein 7.7 g/dL (6.6-8.7)
[2025-05-28 12:56] LABS: Glucose Urine UA Negative (Normal); Nitrate Urine Negative (Negative); Specific Gravity, Urine 1.029 (1.005-1.030)
[2025-05-28] MEDS: iohexol 350 mg/mL 500 mL Btl (per mL) IV (12:56)
[2025-05-28 13:01] LABS: Add Urine Microscopic? YES
--- NOTE | 2025-05-28 13:05 | PC.NURSE ---
Pt stated he already received toradol at clinic. notified and dilaudid was ordered. Toradol not given.
--- NOTE | 2025-05-28 14:16 | P.HP_ITS ---
Providers/Chief Complaint 2 Admitting Physician: Sukhwinder Simeon MD Primary Care Provider: Monico Diehl MD Chief Complaint: R side abd pain History of Present Illness Adam Faye is a 54 year old male with a past medical history of diverticulitis, prediabetes, who presents to [facility] for 2-day history of right lower quadrant abdominal pain, fevers, chills, poor appetite. Currently patient alert oriented x 3, following this, he tells me that he has a history of diverticulitis, for the last 2 days he had right lower quadrant abdominal pain, fatigue and malaise, fevers, chills, he kept himself n.p.o. for the last 2 days, he had a bowel movement this morning, is not passing gas, Medications/Allergies Home Medications ?Medication ?Instructions ?Recorded ?Confirmed ?Last Taken ?Type alprazolam 0.5 mg tablet See Rx Instructions .Route . COMPLEX 08/26/23 05/28/25 05/27/25 08:00 History citalopram 20 mg tablet See Rx Instructions .Route 1 05/28/25 05/28/25 09:00 Rx .COMPLEX #90 tabs hydrocortisone 2.5 % topical cream See Rx Instructions .Route .COMPLEX 05/28/25 05/28/25 Unknown History ibuprofen 200 mg tablet (Advil) 400 mg PO Q6H PRN Feve r Or Pain 05/28/25 05/28/25 05/27/25 20:00 History ketoconazole 2 % topical cream See Rx Instructions .Ro shital .COMPLEX 05/28/25 05/28/25 Unknown History Allergies Allergy/AdvReac Type Severity Reaction Status Date / Time No Known Allergies Allergy Verified 05/28/25 11:55 PFSH Acute 2 PFSH: Medical History Multiple joint pain Allergic rhinitis due to allergen Surgical History History of cholecystectomy History of appendectomy Social History Smoking and tobacco/nicotine status: former use of tobacco/nicotine Vitals/I&O/Wt Last Vital Signs Temp 99.5 F 05/28/25 13:50 Pulse 105 H 05/28/25 13:50 Resp 16 05/28/25 13:50 BP 131/78 05/28/25 13:50 Pulse Ox 93 05/28/25 13:50 O2 Del Method Room Air 05/28/25 13:50 Weight last 48 hrs Weight 106.594 kg Physical Exam 2 Const: COMMON NORMALS: no acute distress and patient oriented x3 Eye: COMMON NORMALS: Equal, round and reactive pupils present and EOMs intact bilaterally Resp: COMMON NORMALS: normal respiratory effort, No retractions, No use of accessory muscles and clear to auscultation bilaterally AUSCULTATION: clear to auscultation bilaterally Cardio: COMMON NORMALS: regular rate, regular rhythm, S1 normal heart sound present and S2 normal heart sound present RATE: regular rate RHYTHM: r egular rhythm HEART SOUNDS: S1 normal heart sound present and S2 normal heart sound present GI: OTHER: Abdomen soft, nondistended, has exquisite right lower quadrant tenderness, no guarding, does have rebound, no rigidity, scattered bowel sounds Extremity: COMMON NORMALS: no calf tenderness and no pedal edema Neuro: COMMON NORMALS: patient oriented x3, CN's II-XII intact bilaterally and moves all extremities Psych: COMMON NORMALS: mental status grossly normal Data 05/28/25 12:23 05/28/25 12:23 Micro: Microbiology 05/28/25 14:07 Blood Culture - Preliminary Blood SPECIMEN COLLECTED 05/28/25 13:53 Blood Culture - Preliminary Blood SPECIMEN COLLECTED A&P Assessment and plan 1. Diverticulitis of colon with perforation: Plan: Perforated diverticulitis CT abdomen pelvis with IV contrast CT/CT abdomen pelvis w con* [id number] IMPRESSION: Acute diverticulitis in the RIGHT lower quadrant with probably a small contained diverticular perforation with a small air and fluid collection measuring 1.0 x 0.7 cm. No drainable abscess at this time. Recommend follow-up to resolution. Plan -N.p.o. -IV fluids -IV Zosyn -Serial abdominal exams -IV Dilaudid for pain control -Full code -Lovenox for DVT prophylaxis Prediabetes, A1c PDMP PDMP Reviewed: Not Reviewed Attestations 2 Medical Necessity Statement*: Patient requires hospitalization for perforated diverticulitis, inpatient, greater than 2 midnights Diagnoses Diverticulitis of colon with perforation K57.20
[2025-05-28 14:20] LABS: Lactic Sepsis W/Reflex 1.4 mmol/L (0.5-2.2)
[2025-05-28 15:08] LABS: Estmated Average Glucose 123; Hemoglobin A1C 5.9 % (4.0-6.0)
[2025-05-28 15:16] LABS: Procalcitonin 0.12 ng/mL (0-0.5); Thyroid Stimulating Hormone 0.32 uIU/mL (0.27-4.20)
[2025-05-28 15:27] LABS: Cholesterol 109 mg/dL (0-200); HDL Cholesterol 40 mg/dL (60-100); Triglycerides 51 mg/dL (0-150)
[2025-05-28 15:32] LABS: INR 1.02 (0.8-1.2); Prothrombin Time 14.10 SECONDS (12.1-14.9)
[2025-05-28 15:34] LABS: Partial Thromboplastin Time 33.5 SECONDS (23.9-36.7)
[2025-05-28] MEDS: pantoprazole 40 mg SDV IVP (15:56)
[2025-05-28] MEDS: metroNIDAZOLE IV 500 MG/100 ML PREMIX 100 MG IV (15:58)
[2025-05-28] MEDS: piperacillin-tazobactam 3.375 GM in sodium chloride 0.9% (plus) 50 ML IV (17:25)
--- NOTE | 2025-05-28 19:32 | P.CONIM_ITS ---
Providers/Reason For Consult 2 Consulting Physician/Specialty*: Dr. Rojas general surgery Reason for Consult*: Diverticulitis Attending Physician: Sukhwinder Simeon MD Primary Care Provider: Monico Diehl MD History of Present Illness History of Present Illness Adam Faye is a 54 year old male past medical history diverticulitis with multiple episodes. No recent colonoscopy. In this instance he presents with a H[place]hey 1 sigmoid diverticulitis. Abdomen is benign, tender left lower quadrant. Medications/Allergies Home Medications ?Medication ?Instructions ?Recorded ?Confirmed ?Last Taken ?Type alprazolam 0.5 mg tablet See Rx Instructions .Route . COMPLEX 08/26/23 05/28/25 05/27/25 08:00 History citalopram 20 mg tablet See Rx Instructions .Route 1 05/28/25 05/28/25 09:00 Rx .COMPLEX #90 tabs hydrocortisone 2.5 % topical cream See Rx Instructions .Route .COMPLEX 05/28/25 05/28/25 Unknown History ibuprofen 200 mg tablet (Advil) 400 mg PO Q6H PRN Feve r Or Pain 05/28/25 05/28/25 05/27/25 20:00 History ketoconazole 2 % topical cream See Rx Instructions .Ro shital .COMPLEX 05/28/25 05/28/25 Unknown History Allergies Allergy/AdvReac Type Severity Reaction Status Date / Time No Known Allergies Allergy Verified 05/28/25 11:55 Current Medications Generic Name Dose Route Start Last Admin Trade Name Freq PRN Reason Stop Dose Admin Enoxaparin Sodium 40 mg 05/28/25 14:43 05/28/25 15:48 Enoxaparin 40 Mg/0.4 Ml Syringe SUBCUT 40 mg Q24H JALIL Administration Hydromorphone HCl 1 mg 05/28/25 14:43 05/28/25 18:37 Hydromorphone 0.5 Mg/0.5 Ml Inj IVP 1 mg Q4H PRN Administration PAIN Sodium Chloride 1,000 mls @ 125 mls/hr 05/28/25 14:43 05/28/25 17:26 Sodium Chloride 0.9% IV 125 mls/hr .Q8H JALIL Administration Piperacillin Sod/Tazobactam 50 mls @ 12.5 mls/hr 05/28/25 17:15 05/28/25 17:25 Sod 3.375 gm/ Sodium Chloride IV 12.5 mls/hr Q8H JALIL Administration Pantoprazole Sodium 40 mg 05/28/25 14:43 05/28/25 15:56 Pantoprazole 40 Mg Sdv IVP 40 mg Q12H JALIL Administration PFSH Acute 2 PFSH: Medical History (Updated 05/28/25 @ 14:20 by Sukhwinder Simeon MD) Multiple joint pain Allergic rhinitis due to allergen Surgical History History of cholecystectomy History of appendectomy Social History Smoking and tobacco/nicotine status: former use of tobacco/nicotine Vitals/I&O/Wt Last Vital Signs Temp 99.3 F 05/28/25 14:43 Pulse 105 H 05/28/25 14:46 Resp 17 05/28/25 14:43 BP 156/83 05/28/25 14:46 Pulse Ox 96 05/28/25 14:46 O2 Del Method Room Air 05/28/25 14:48 Weight last 48 hrs Weight 238 lb 7 oz Weight 235 lb Physical Exam 2 Narrative: Chest: Unlabored breathing room air. No lymphadenopathy. Heart: Regular rate and rhythm. Abdomen: Soft, tender left lower quadrant. Mildly distended. Non peritonitic Data 05/29/25 05:52 05/29/25 05:52 Micro: Microbiology 05/28/25 14:07 Blood Culture - Preliminary Blood SPECIMEN COLLECTED 05/28/25 13:53 Blood Culture - Preliminary Blood SPECIMEN COLLECTED A&P Assessment and plan 1. Diverticulitis of colon with perforation: Plan: 54-year-old male with Hinchey 1 diverticulitis. Multiple episodes. Treat with bowel rest, IVFs, IV antibiotics. No indication for surgery at this point. Will plan for colonoscopy in 6 weeks. Will follow closely. PDMP PDMP Reviewed: Not Reviewed Coding Level of Care Code 73669 Diagnoses Diverticulitis of colon with perforation K57.20
--- NOTE | 2025-05-28 19:34 | PM.MISC ---
Miscellaneous Note Note: Hinchey 1 diverticulitis. Treat with bowel rest, IVFs, IV antibiotics. No indication for surgery at this point. Will follow closely. Full consult note to follow.
[2025-05-29] VITALS (8 sets, daily range): BP systolic 114–128; BP diastolic 64–75; PULSE 84–105; RESP 16–18; TEMP 36.9–37.7; O2SAT 90–95
[2025-05-29] MEDS: piperacillin-tazobactam 3.375 GM in sodium chloride 0.9% (plus) 50 ML IV ×2 (01:25→10:54)
[2025-05-29] MEDS: HYDROmorphone 0.5 MG/0.5 ML INJ 1 MG IVP ×3 (02:55→10:37)
[2025-05-29] MEDS: pantoprazole 40 mg SDV IVP (03:06)
[2025-05-29 06:08] LABS: Hematocrit 39.1 % (37-53); Hemoglobin 12.70 g/dL (11.27-16.99); Mean Corpuscular HGB Conc 32.5 g/dL (30-55); Mean Corpuscular Hemoglobin 29.1 pg (27-33); Mean Corpuscular Volume 89.7 fl (82-101); Nucleated Red Blood Cells % 0 %; Platelet Count 238 10^3/cmm (157-399); Red Blood Count 4.36 10^6/uL (3.85-5.65); White Blood Count 11.88 10^3/uL (3.29-11.43)
[2025-05-29 06:33] LABS: Alanine Aminotransferase 27 U/L (0-41); Albumin Level 3.5 g/dL (3.5-5.2); Alkaline Phosphatase 62 U/L (40-130); Anion Gap 15.8 (5-19); Aspartate Amino Transferase 22 U/L (0-40); Blood Urea Nitrogen 11 mg/dL (6-20); Calcium 7.7 mg/dL (8.5-10.5); Carbon Dioxide 21 mmol/L (22-29); Chloride 104 mmol/L (98-107); Creatinine Clr Calc Pharmacy 127.3117; Globulin 2.7 g/dL (1.3-4.6); Glucose 77 mg/dL (65-115); Magnesium 1.9 mg/dL (1.7-2.3); Osmolality Calculated 282 mOsm/kg (285-295); Potassium 3.8 mmol/L (3.5-5.1); Sodium 137 mmol/L (136-145); Total Protein 6.2 g/dL (6.6-8.7)
--- NOTE | 2025-05-29 07:06 | P.PN_ITS ---
Subjective 2 Subjective: No acute events overnight Abdomen benign Leukocytosis improved Vitals/I&O/Wt Last Vital Signs Temp 98.5 F 05/29/25 03:09 Pulse 84 05/29/25 06:00 Resp 18 05/29/25 03:09 BP 117/75 05/29/25 03:09 Pulse Ox 95 05/29/25 03:09 O2 Del Method Room Air 05/29/25 03:09 05/28/25 05/29/25 05/29/25 22:59 06:59 14:59 Intake Total 50 / 50 3850 / 3900 Balance 50 / 50 3850 / 3900 Weight last 48 hrs Weight 249 lb 4.8 oz Weight 238 lb 7 oz Weight 235 lb Physical Exam 2 Narrative: Chest: Unlabored breathing room air. No lymphadenopathy. Heart: Regular rate and rhythm. Abdomen: Soft, tender left lower quadrant, mildly distended. Non peritonitic Data 05/29/25 05:52 05/29/25 05:52 Micro: Microbiology 05/28/25 14:07 Blood Culture - Preliminary Blood SPECIMEN COLLECTED 05/28/25 13:53 Blood Culture - Preliminary Blood SPECIMEN COLLECTED A&P Assessment and plan 1. Diverticulitis of colon with perforation: Plan: 54-year-old male who presented with Hinchey 1 diverticulitis. Responding to IV antibiotics and bowel rest. Leukocytosis improved. Abdomen remains benign. Patient inquired about transfer for evaluation by colorectal surgery for second opinion. Explained that he is responding to medical management as well as bowel rest and that they may pursue the same management. Answered all their questions. Family at bedside. Explained the need for colonoscopy in 6 weeks to confirm diagnosis. He can be referred to colorectal surgery as outpatient for elective minimally invasive colectomy if he wishes to proceed this way. PDMP PDMP Reviewed: Not Reviewed Attestations 2 Medical Necessity Statement*: N/A Coding Level of Care Code 61285 Diagnoses Diverticulitis of colon with perforation K57.20
--- NOTE | 2025-05-29 10:51 | P.PN_ITS ---
Subjective 2 Subjective: Patient was seen this morning, abdomen feels more distended continues to have exquisite right lower quadrant pain, does not pass gas, has not had a bowel movement, feels nauseous, no lightheadedness, no dizziness, patient tells me he wants to transfer to [facility] for colorectal surgery evaluation, discussed risks and benefits, he voiced understanding, all questions answered, agreed to proceed -Discussed with family that transferring to [facility] does not guarantee surgery, likely he will improve with medical management, he tells me after discussion with general surgery, he wants to transfer for evaluation by colorectal surgery as he has not clinically improved over the last 24 hours - Spoke to [facility], spoke to [facility] surgery at [facility], will transfer Vitals/I&O/Wt Last Vital Signs Temp 98.5 F 05/29/25 08:00 Pulse 86 05/29/25 08:00 Resp 17 05/29/25 08:00 BP 114/64 05/29/25 08:00 Pulse Ox 95 05/29/25 07:29 O2 Del Method Room Air 05/29/25 03:09 05/28/25 05/29/25 05/29/25 22:59 06:59 14:59 Intake Total 50 / 50 3850 / 3900 Balance 50 / 50 3850 / 3900 Weight last 48 hrs Weight 113.081 kg Weight 108.153 kg Weight 106.594 kg Physical Exam 2 Const: COMMON NORMALS: no acute distress and patient oriented x3 Resp: COMMON NORMALS: normal respiratory effort, No retractions, No use of accessory muscles and clear to auscultation bilaterally AUSCULTATION: clear to auscultation bilaterally Cardio: COMMON NORMALS: regular rate, regular rhythm, S1 normal heart sound present and S2 normal heart sound present RATE: regular rate RHYTHM: r egular rhythm HEART SOUNDS: S1 normal heart sound present and S2 normal heart sound present GI: OTHER: Abdomen soft, distended, exquisite right upper quadrant tenderness, no rebound tenderness, no guarding, no rigidity Extremity: COMMON NORMALS: no calf tenderness and no pedal edema Neuro: COMMON NORMALS: patient oriented x3, CN's II-XII intact bilaterally and moves all extremities Psych: COMMON NORMALS: mental status grossly normal Data 05/29/25 05:52 05/29/25 05:52 Micro: Microbiology 05/28/25 14:07 Blood Culture - Preliminary Blood SPECIMEN COLLECTED 05/28/25 13:53 Blood Culture - Preliminary Blood SPECIMEN COLLECTED A&P Assessment and plan 1. Diverticulitis of colon with perforation: Plan: Perforated diverticulitis CT abdomen pelvis with IV contrast CT/CT abdomen pelvis w con* [id number] IMPRESSION: Acute diverticulitis in the RIGHT lower quadrant with probably a small contained diverticular perforation with a small air and fluid collection measuring 1.0 x 0.7 cm. No drainable abscess at this time. Recommend follow-up to resolution. Plan -N.p.o. -IV fluids -IV Zosyn -Serial abdominal exams -IV Dilaudid for pain control -Full code -Lovenox for DVT prophylaxis - Will transfer to tertiary level center for colorectal surgery evaluation Prediabetes, A1c PDMP PDMP Reviewed: Not Reviewed Attestations 2 Medical Necessity Statement*: Patient will be transferred today Diagnoses Diverticulitis of colon with perforation K57.20
--- NOTE | 2025-05-29 12:05 | P.TS_ITS ---
Transfer Summary Providers Date of Admission: 05/28/25 13:58 Date of Discharge/Transfer: 05/29/25 Attending Provider at Admission: Sukhwinder Simeon MD Attending Provider at Transfer: Sukhwinder Simeon MD Primary Care Provider: Monico Diehl MD Transfer Plans: Anticipated date of transfer: 05/29/25 . Diagnoses at Discharge Discharge Diagnosis 1. Diverticulitis of colon with perforation: Reason for Visit Reason for Visit R side abd pain Hospital Course Hospital Course Adam Faye is a 54 year old male with a past medical history of diverticulitis, prediabetes, who presents to [facility] for 2-day history of right lower quadrant abdominal pain, fevers, chills, poor appetite. Currently patient alert oriented x 3, following this, he tells me that he has a history of diverticulitis, for the last 2 days he had right lower quadrant abdominal pain, fatigue and malaise, fevers, chills, he kept himself n.p.o. for the last 2 days, he had a bowel movement this morning, is not passing gas, Perforated diverticulitis CT abdomen pelvis with IV contrast CT/CT abdomen pelvis w con* [id number] IMPRESSION: Acute diverticulitis in the RIGHT lower quadrant with probably a small contained diverticular perforation with a small air and fluid collection measuring 1.0 x 0.7 cm. No drainable abscess at this time. Recommend follow-up to resolution. -patient was admitted for IV zosyn, npo, IV fluids, general surgery consulted -Morning of 05/29/2025 patient coutinues to have RLQ pain, lack of bowel movement, not passing marcellus, increased abdominal distention, after discussion with general surgery, patient would like transfer to [facility] for colorectal surgery evaluation, accepted at [facility], awaiting a bed Physical Exam Const: COMMON NORMALS: no acute distress and patient oriented x3 Resp: COMMON NORMALS: normal respiratory effort, No retractions, No use of accessory muscles and clear to auscultation bilaterally AUSCULTATION: clear to auscultation bilaterally Cardio: COMMON NORMALS: regular rate, regular rhythm, S1 normal heart sound present and S2 normal heart sound present RATE: regular rate RHYTHM: regular rhythm HEART SOUNDS: S1 normal heart sound present and S2 normal heart sound present GI: OTHER: abdomen soft, and distended, scattered bowel sounds, no rebound, no rigidity, RLQ tenderness Extremity: COMMON NORMALS: no pedal edema Neuro: COMMON NORMALS: patient oriented x3, CN's II-XII intact bilaterally and moves all extremities Psych: COMMON NORMALS: mental status grossly normal TS Data Studies Completed and Pending Pending at discharge Category Date Time Status Blood Culture Stat Lab 05/28/25 14:07 Results Complete Blood Count w/Auto AM LABS Lab 05/30/25 04:00 Ordered Complete Blood Count w/Auto AM LABS Lab 05/31/25 04:00 Ordered Comprehensive Metabolic Panel AM LABS Lab 05/30/25 04:00 Ordered Comprehensive Metabolic Panel AM LABS Lab 05/31/25 04:00 Ordered Magnesium AM LABS Lab 05/30/25 04:00 Ordered Magnesium AM LABS Lab 05/31/25 04:00 Ordered Phosphorus AM LABS Lab 05/30/25 04:00 Ordered Phosphorus AM LABS Lab 05/31/25 04:00 Ordered Completed Studies During Hospitalization Category Date Time Status CT abdomen pelvis w con* [id number] Stat Cat Scan 05/28/25 12:05 Completed Laboratory Last Values WBC 11.88 10^3/uL (3.29-11.43) H 05/29/25 05:52 RBC 4.36 10^6/uL (3.85-5.65) 05/29/25 05:52 Hgb 12.70 g/dL (11.27-16.99) 05/29/25 05:52 Hct 39.1 % (37-53) 05/29/25 05:52 MCV 89.7 fl (82-101) 05/29/25 05:52 MCH 29.1 pg (27-33) 05/29/25 05:52 MCHC 32.5 g/dL (30-55) 05/29/25 05:52 RDW 12.9 % (12.1-15.1) 05/29/25 05:52 Plt Count 238 10^3/cmm (157-399) 05/29/25 05:52 MPV 9.9 fL (7.4-10.4) 05/29/25 05:52 Neut % (Auto) 71.1 % 05/29/25 05:52 Lymph % (Auto) 16.2 % 05/29/25 05:52 Wright % (Auto) 10.9 % 05/29/25 05:52 Eos % (Auto) 0.8 % 05/29/25 05:52 Baso % (Auto) 0.6 % 05/29/25 05:52 Neut # (Auto) 8.45 10^3/uL (1.8-7.7) H 05/29/25 05:52 Lymph # (Auto) 1.9 10^3/uL (0.8-4.8) 05/29/25 05:52 Wright # (Auto) 1.3 10^3/uL (0.2-0.9) H 05/29/25 05:52 Eos # (Auto) 0.1 10^3/uL (0.0-0.8) 05/29/25 05:52 Baso # (Auto) 0.1 10^3/uL (0.0-0.1) 05/29/25 05:52 Nucleated RBC % (auto) 0 % 05/29/25 05:52 Nucleated RBCs # 0.0 /100WBC 05/29/25 05:52 PT 14.10 SECONDS (12.1-14.9) 05/28/25 12:23 INR 1.02 (0.8-1.2) 05/28/25 12:23 APTT 33.5 SECONDS (23.9-36.7) 05/28/25 12:23 Sodium 137 mmol/L (136-145) 05/29/25 05:52 Potassium 3.8 mmol/L (3.5-5.1) 05/29/25 05:52 Chloride 104 mmol/L (98-107) 05/29/25 05:52 Carbon Dioxide 21 mmol/L (22-29) L 05/29/25 05:52 Anion Gap 15.8 (5-19) 05/29/25 05:52 BUN 11 mg/dL (6-20) 05/29/25 05:52 Creatinine 0.8 mg/dL (0.7-1.2) 05/29/25 05:52 GFR Calculation 100.4 mL/min (90-130) 05/29/25 05:52 Glucose 77 mg/dL (65-115) 05/29/25 05:52 Estimat Average Glucose 123 05/28/25 12:23 Hemoglobin A1c 5.9 % (4.0-6.0) 05/28/25 12:23 Calculated Osmolality 282 mOsm/kg (285-295) L 05/29/25 05:52 Lactic Acid 1.4 mmol/L (0.5-2.2) 05/28/25 12:23 Calcium 7.7 mg/dL (8.5-10.5) L 05/29/25 05:52 Phosphorus 2.7 mg/dL (2.5-4.5) 05/29/25 05:52 Magnesium 1.9 mg/dL (1.7-2.3) 05/29/25 05:52 Total Bilirubin 0.7 mg/dL (0.15-1.2) 05/29/25 05:52 AST 22 U/L (0-40) 05/29/25 05:52 ALT 27 U/L (0-41) 05/29/25 05:52 Alkaline Phosphatase 62 U/L (40-130) 05/29/25 05:52 C-Reactive Protein 104.7 mg/L (0.0-4.9) H 05/28/25 12:23 Total Protein 6.2 g/dL (6.6-8.7) L 05/29/25 05:52 Albumin 3.5 g/dL (3.5-5.2) 05/29/25 05:52 Globulin 2.7 g/dL (1.3-4.6) 05/29/25 05:52 Triglycerides 51 mg/dL (0-150) 05/28/25 12:23 Cholesterol 109 mg/dL (0-200) 05/28/25 12:23 LDL Cholesterol, Calc 59 mg/dL (50-129) 05/28/25 12:23 HDL Cholesterol 40 mg/dL (60-100) L 05/28/25 12:23 LDL/HDL Ratio 1.48 RATIO (0.00-3.22) 05/28/25 12:23 Cholesterol/HDL Ratio 2.73 mg/dL (1.0-5.00) 05/28/25 12:23 Lipase 19 U/L (13-60) 05/28/25 12:23 Procalcitonin 0.12 ng/mL (0-0.5) 05/28/25 12:23 TSH 0.32 uIU/mL (0.27-4.20) 05/28/25 12:23 Urine Color Yellow (Yellow) 05/28/25 12:47 Urine Appearance Clear (CLEAR) 05/28/25 12:47 Urine pH 6.0 (5-7) 05/28/25 12:47 Ur Specific Clayton 1.029 (1.005-1.030) 05/28/25 12:47 Urine Protein 1+ (Negative) A 05/28/25 12:47 Urine Glucose (UA) Negative (Normal) 05/28/25 12:47 Urine Ketones 4+ (Negative) 05/28/25 12:47 Urine Blood Negative (Negative) 05/28/25 12:47 Urine Nitrate Negative (Negative) 05/28/25 12:47 Urine Bilirubin Negative (Negative) 05/28/25 12:47 Urine Urobilinogen 1.0 mg/dL (Negative) 05/28/25 12:47 Ur Leukocyte Esterase Negative (Negative) 05/28/25 12:47 Urine RBC 0-2 /hpf (0-2) 05/28/25 12:47 Urine WBC 0-5 /hpf (0-5) 05/28/25 12:47 Ur Squamous Epith Cells 0-5 /hpf (0-5) 05/28/25 12:47 Amorphous Sediment Not Reportable 05/28/25 12:47 Urine Bacteria None seen /hpf (NONE) 05/28/25 12:47 Hyaline Casts 1.21 /lpf 05/28/25 12:47 Radiology Impressions Abdomen/Pelvis CT 05/28/25 12:05 IMPRESSION: Acute diverticulitis in the RIGHT lower quadrant with probably a small contained diverticular perforation with a small air and fluid collection measuring 1.0 x 0.7 cm. No drainable abscess at this time. Recommend follow-up to resolution. Notified Lizet Anthony MD at 05/28/2025 1:25 PM. Recent Clincial Data Last Vital Signs Temp 98.5 F 05/29/25 11:44 Pulse 95 05/29/25 11:44 Resp 17 05/29/25 11:44 BP 128/74 05/29/25 11:44 Pulse Ox 94 05/29/25 11:44 O2 Del Method Room Air 05/29/25 03:09 Vital Signs Temp Pulse Resp BP Pulse Ox O2 Del Method 05/29/25 11:44 98.5 F 95 17 128/74 94 05/29/25 08:00 98.5 F 86 17 114/64 05/29/25 07:29 98.5 F 86 17 114/64 95 05/29/25 06:00 84 05/29/25 03:09 98.5 F 95 18 117/75 95 Room Air Intake & Output/Weight 05/27/25 05/28/25 05/29/25 05/30/25 06:59 06:59 06:59 06:59 Intake Total 3900 / 3900 1000 / 1000 Balance 3900 / 3900 1000 / 1000 Weight 113.081 kg Vitals Last Vital Signs Temp 98.5 F 05/29/25 11:44 Pulse 95 05/29/25 11:44 Resp 17 05/29/25 11:44 BP 128/74 05/29/25 11:44 Pulse Ox 94 05/29/25 11:44 O2 Del Method Room Air 05/29/25 03:09 TS Medications Medications Acetaminophen (Acetaminophen 325 Mg Tablet) 650 mg PO Q6H PRN PRN Reason: Mild/Mod Pain Or Temp >/= 101 Alprazolam (Alprazolam 0.5 Mg Tablet) 0.5 mg PO DAILY PRN PRN Reason: ANXIETY Citalopram Hydrobromide (Citalopram 20 Mg Tablet) 20 mg PO DAILY [facility] Last Admin: 05/29/25 06:24 Dose: Not Given Enoxaparin Sodium (Enoxaparin 40 Mg/0.4 Ml Syringe) 40 mg SUBCUT Q24H [facility] Last Admin: 05/28/25 15:48 Dose: 40 mg Hydromorphone HCl (Hydromorphone 0.5 Mg/0.5 Ml Inj) 1 mg IVP Q4H PRN PRN Reason: PAIN Last Admin: 05/29/25 10:37 Dose: 1 mg Sodium Chloride (Sodium Chloride 0.9%) 1,000 mls @ 125 mls/hr IV .Q8H [facility] Last Admin: 05/29/25 10:55 Dose: 125 mls/hr Piperacillin Sod/Tazobactam (Sod 3.375 gm/ Sodium Chloride) 50 mls @ 12.5 mls/hr IV Q8H [facility] Last Admin: 05/29/25 10:54 Dose: 12.5 mls/hr Metoclopramide HCl (Metoclopramide 5 Mg/Ml Sdv 2 Ml) 5 mg IVP Q6H PRN PRN Reason: NAUSEA AND VOMITING Naloxone HCl (Naloxone 0.4 Mg/Ml Sdv) 0.1 mg IVP Q2M PRN PRN Reason: OPIATERV Ondansetron HCl (Ondansetron 2 Mg/Ml Sdv 2 Ml) 4 mg IVP Q8H PRN PRN Reason: vomiting, or N/V if npo Pantoprazole Sodium (Pantoprazole 40 Mg Sdv) 40 mg IVP Q12H [facility] Last Admin: 05/29/25 03:06 Dose: 40 mg Discontinued Medications Hydromorphone HCl (Hydromorphone 0.5 Mg/0.5 Ml Inj) 1 mg IVP ONCE STA Stop: 05/28/25 12:29 Last Admin: 05/28/25 12:41 Dose: 1 mg Hydromorphone HCl (Hydromorphone 0.5 Mg/0.5 Ml Inj) 1 mg IVP ONCE ONE Stop: 05/28/25 14:03 Last Admin: 05/28/25 14:08 Dose: 1 mg Sodium Chloride (Sodium Chloride 0.9%) 1,000 mls @ 999 mls/hr IV .Q1H1M ONE Stop: 05/28/25 14:01 Last Infusion: 05/29/25 02:30 Dose: Infused Ciprofloxacin/Dextrose (Cipro) 400 mg in 200 mls @ 200 mls/hr IV ONCE ONE; Protocol Stop: 05/28/25 14:24 Last Infusion: 05/29/25 02:28 Dose: Infused Metronidazole (Flagyl Iv) 500 mg in 100 mls @ 100 mls/hr IV ONCE ONE Stop: 05/28/25 14:24 Last Infusion: 05/29/25 02:29 Dose: Infused Sodium Chloride (Sodium Chloride 0.9%) 1,000 mls @ 999 mls/hr IV .Q1H1M ONE Stop: 05/28/25 14:25 Last Infusion: 05/29/25 02:30 Dose: Infused Sodium Chloride (Sodium Chloride 0.9%) 500 mls @ 999 mls/hr IV .Q31M STA Stop: 05/28/25 13:55 Last Infusion: 05/29/25 02:30 Dose: Infused Piperacillin Sod/Tazobactam (Sod / Sodium Chloride) 50 mls @ 0 mls/hr [id number] CONT JALIL; Protocol Piperacillin Sod/Tazobactam (Sod 3.375 gm/ Sodium Chloride) 50 mls @ 12.5 mls/hr IV Q8H JALIL Iohexol (Iohexol 350 Mg/Ml 500 Ml Btl (Per Ml)) 0 ml IV ONCE ONE Stop: 05/28/25 12:57 Last Admin: 05/28/25 12:56 Dose: 100 ml Ketorolac Tromethamine (Ketorolac 30 Mg/Ml Inj) 30 mg IVP ONCE ONE Stop: 05/28/25 12:06 Last Admin: 05/28/25 13:05 Dose: Not Given Ondansetron HCl (Ondansetron 2 Mg/Ml Sdv 2 Ml) 4 mg IVP ONCE ONE Stop: 05/28/25 12:06 Last Admin: 05/28/25 12:37 Dose: 4 mg Ondansetron HCl (Ondansetron 2 Mg/Ml Sdv 2 Ml) 4 mg IVP ONCE ONE Stop: 05/28/25 15:39 Last Admin: 05/28/25 15:56 Dose: 4 mg Allergies No Known Allergies Allergy (Verified 05/28/25 11:55) Home Medications alprazolam 0.5 mg tablet See Rx Instructions .Route .COMPLEX 08/26/23 [History Confirmed 05/28/25] citalopram 20 mg tablet See Rx Instructions .Route .COMPLEX #90 tabs 05/23/24 [Rx Confirmed 05/28/25] hydrocortisone 2.5 % topical cream See Rx Instructions .Route .COMPLEX 05/28/25 [History Confirmed 05/28/25] ibuprofen 200 mg tablet (Advil) 400 mg PO Q6H PRN Fever Or Pain 05/28/25 [History Confirmed 05/28/25] ketoconazole 2 % topical cream See Rx Instructions .Route .COMPLEX 05/28/25 [History Confirmed 05/28/25] Discharge Plan Discharge Patient Disposition: Home Condition: Stable Prescriptions: No Action citalopram 20 mg tablet See Rx Instructions .ROUTE .COMPLEX Qty: 90 3RF Dose Instruction: TAKE 1 TABLET BY MOUTH EVERY DAY Rx Instructions: TAKE 1 TABLET BY MOUTH EVERY DAY hydrocortisone 2.5 % cream See Rx Instructions .ROUTE .COMPLEX Rx Instructions: MIX 1:1 WITH KETOCONAZOLE CREAM APPLY TO SCALY RASH ON EARS FACE NEEDED. ketoconazole 2 % cream See Rx Instructions .ROUTE .COMPLEX Rx Instructions: MIX 1 TO1 WITH HYDROCORTISONE APPLY TO SCALY RASH ON FACE AND EARS TWICE DAILY ibuprofen [Advil] 200 mg Tablet 400 mg PO Q6H PRN (Reason: Fever Or Pain) alprazolam 0.5 mg tablet See Rx Instructions .ROUTE .COMPLEX Rx Instructions: TAKE 1 TABLET AT THE ONSET OF SEVERE PANIC MAX 1 PER DAY AND USE INFREQUENTLY POSSIBLE Referrals: Monico Diehl MD [Primary Care Provider, Family Practice] Patient Instructions: Abdominal Pain (ED), Opioid Safety, Patient Portal & Paul Instructions Transfer Attestations Time Spent in Transfer Care: greater than 30 min Quality Metrics Clinical Quality Measures [ No reported AMI, CVA or VTE this stay] Coding Level of Care Code Acute Code for Chg Fwd Diagnoses Diverticulitis of colon with perforation K57.20
--- NOTE | 2025-05-29 12:20 | PC.NURSE ---
called report to Estefani Lutz RN at [facility]
[2025-05-29] MEDS: ondansetron 2 mg/ML SDV 2 mL 4 MG IVP (13:00)
== END 2025-05-29 13:22 | disposition short-term general hospital (02) | DRG 392 ==
LOC: ER 13:51 → MEDSURG 13:59
PROVIDERS: Emergency Medicine; Admitting Provider Family Medicine; Emergency Provider Emergency Medicine; PCP Family Medicine; Visit Provider Family Medicine
DX: K57.20 Diverticulitis of large intestine with perforation and abscess without bleeding (principal); R73.03 Prediabetes; Z87.891 Personal history of nicotine dependence
CPT/HCPCS: 36415; 74177; 80053; 80061; 81001; 83036; 83605; 83690; 83735; 84100; 84145; 84443; 85025; 85610; 85730; 86140; 87040; 96365; 96367; 96372; 96375; 99285; J0744; J1171; J1650; J2405; J2470; J2543; J3490; J7030; J7040; J9999